=== PATIENT | female | born 1940 | race Asian ===

== ENCOUNTER 2017-07-19 12:32 | Emergency (ER) | payer MEDICARE, OTHER ==
[~2017-07-19] VITALS: Ht 154.9 cm; Wt 58.5 kg
[~2017-07-19 12:32] MED LIST: ALEN70TA30 PO; AMLO2.5T78 PO; ASPI-799 PO; ASPI81TA3 PO; ATOR20TA38 PO; CALC600T5 PO; CLON-379 PO; GABA300C16 PO; LISI-313 PO; METF500T4 PO; MULT-860 PO; OMEG-135 PO; PANT40TA4 PO
[2017-07-19 12:36] VITALS: Ht 154.9 cm; Wt 58.5 kg
--- NOTE | 2017-07-19 13:40 | ERD ---
ER Documentation Chief Complaint Chief Complaint left shoulder/upper back pain x 1 wks. denies cp/sob/cough HPI The patient is a 77-year-old female, presenting to the ER because of left shoulder pain for 1 week, denies neck pain, chest pain, shortness of breath, trauma, abdominal pain, vomiting, dysuria, diarrhea. She does not smoke nor drink Past medical history: Hypertension, diabetes mellitus, osteoporosis, dyslipidemia next Past medical history: eye ROS All systems reviewed and are negative except as per history of present illness. Medications Home Meds Active Scripts Tramadol Hcl* (Ultram*) 50 Mg Tablet, 50 MG PO Q6H Y for PAIN, #14 TAB Prov:MARCELLO ACOSTA MD 07/19/17 Amlodipine Besylate* (Amlodipine Besylate*) 2.5 Mg Tablet, 2.5 MG PO BID for 30 Days, TAB Prov:RONI GARCÍA 08/24/15 Pantoprazole* (Pantoprazole*) 40 Mg Tabec, 40 MG PO DAILY@06, #30 Prov:RONI GARCÍA 08/24/15 Aspirin (Aspirin) 81 Mg Chew, 81 MG PO DAILY for 30 Days Prov:RONI GARCÍA 08/24/15 Clonidine Hcl* (Clonidine Hcl*) 0.1 Mg Tab, 0.1 MG PO Q4H Y for sbp>160, #30 TAB Prov:RONI GARCÍA 08/24/15 Reported Medications Fish Oil* (Fish Oil*) 1,000 Mg Cap, 1000 MG PO BID, CAP 08/23/15 Lisinopril* (Lisinopril*) 5 Mg Tablet, 5 MG PO DAILY, TAB 08/23/15 Mu-Vits-Min Th/Lycopene/Lutein (CENTRUM SILVER TABLET) 1 Each Tablet, 1 EACH PO DAILY 08/23/15 Metformin Hcl* (Metformin Hcl*) 500 Mg Tablet, 500 MG PO BID WITH MEALS, TAB 08/23/15 Gabapentin* (Gabapentin*) 300 Mg Capsule, 300 MG PO TID, CAP 08/23/15 Atorvastatin Calcium* (Atorvastatin Calcium*) 20 Mg Tablet, 20 MG PO HS, TAB 08/23/15 Alendronate Sodium* (Fosamax*) 70 Mg Tablet, 70 MG PO Q7D, TAB 08/23/15 Aspirin/Calcium Carbonate/Mag (Aspirin Tri-Buffered) 325 Mg Tablet, 81 MG PO, TAB 11/26/14 Calcium Carbonate (CALCIUM) 600 Mg Tablet, 600 MG PO 11/26/14 Allergies Allergies: Coded Allergies: No Known Drug Allergy (Verified Allergy, Unknown, 07/19/17) PMhx/Soc Medical and Surgical Hx: pt denies Surgical Hx History of Surgery: No Anesthesia Reaction: No Hx Neurological Disorder: No Hx Respiratory Disorders: No Hx Cardiac Disorders: Yes (HTN) Hx Psychiatric Problems: No Hx Miscellaneous Medical Probl: Yes (DIABETES, TIA x2 ) Hx Alcohol Use: No Hx Substance Use: No Hx Tobacco Use: No Smoking Status: Never smoker Physical Exam Vitals Vital Signs Date Time Temp Pulse Resp B/P Pulse Ox O2 Delivery O2 Flow Rate FiO2 07/19/17 14:46 98.6 72 19 136/75 100 Room Air 07/19/17 12:36 97.7 79 18 157/82 98 Physical Exam Const: No acute distress. Head: Atraumatic. Eyes: Normal Conjunctiva. ENT: Normal External Ears, Nose and Mouth. Neck: Full range of motion. No meningismus. Resp: Clear to auscultation bilaterally. Cardio: Regular rate and rhythm. Abd: Soft, non distended, normal bowel sounds, non tender. Skin: No petechiae or rashes. Back: No midline or flank tenderness. Ext: Left shoulder is without any crepitus, erythema, has full range of motion Neur: Awake and alert. No focal deficit Psych: Normal Mood and Affect. Procedures/MDM MEDICAL MAKING DECISION: The patient is a 77-year-old female, presenting with acute left shoulder pain of unclear etiology. She is stable for outpatient follow-up The differential diagnoses considered include but are not limited to osteoarthritis, osteoporosis, internal derangement, fracture, contusion, sprain Departure Diagnosis: Primary Impression: Left shoulder pain Condition: Good Comments She was discharged with Ultram and advised that she may need MRI if the pain is persistent I discussed the findings with the patient. I advised the patient to follow-up with the primary physician in about 1-2 days, sooner if needed and return if any concern. Disclaimer: Inadvertent spelling and grammatical errors are likely due to EHR/ dictation software use and do not reflect on the overall quality of patient care. Also, please note that the electronic time recorded on this note does not necessarily reflect the actual time of the patient encounter. MARCELLO ACOSTA MD Jul 19, 2017 13:40
[2017-07-19] MEDS ORDERED: TRAM-40 PO (14:16)
[2017-07-19 14:46] VITALS: BP 136/75; PULSE 72; RESP 19; TEMP 98.6
== END 2017-07-19 14:47 | disposition home or self-care (01) ==
LOC: FTE 12:32
DX: M25.512 Pain in left shoulder (principal); I10 Essential (primary) hypertension; E11.9 Type 2 diabetes mellitus without complications; Z79.82 Long term (current) use of aspirin; Z79.84 Long term (current) use of oral hypoglycemic drugs
CPT/HCPCS: 99283

== ENCOUNTER 2018-12-03 15:00 | Emergency (ER) | payer MEDICARE, OTHER ==
[~2018-12-03] VITALS: Wt 55.9 kg
[~2018-12-03 15:00] MED LIST changes: -ALEN70TA30 PO; +ALEN70TA5 PO; +ASPI-831 PO; -ASPI81TA3 PO; +METF500T24 PO; -METF500T4 PO; +TRAM50TA PO
[2018-12-03] MEDS ORDERED: ACET500C5 PO (18:31)
--- NOTE | 2018-12-03 18:35 | ERD ---
ER Documentation Chief Complaint Chief Complaint RIGHT FOOT INJURY S/P GLF YESTERDAY, NO KO HPI 78-year-old female tripped and sustained an injury to her right foot yesterday. She has pain primarily in the first MTP area. She denies restricted range of motion weakness or bleeding or lacerations. Denies ankle or knee pain. She denies any head injury, neck pain, additional symptoms. ROS All systems reviewed and are negative except as per history of present illness. Medications Home Meds Active Scripts Acetaminophen* (Tylophen*) 500 Mg Capsule, 1 CAP PO Q6H PRN for PAIN AND OR ELEVATED TEMP, #20 CAP Prov:JESSE CAIN MD 12/03/18 Tramadol Hcl* (Ultram*) 50 Mg Tablet, 50 MG PO Q6H PRN for PAIN, #14 TAB Prov:MARCELLO ACOSTA MD 07/19/17 Amlodipine Besylate* (Amlodipine Besylate*) 2.5 Mg Tablet, 2.5 MG PO BID for 30 Days, TAB Prov:RONI GARCÍA 08/24/15 Pantoprazole* (Pantoprazole*) 40 Mg Tabec, 40 MG PO DAILY@06, #30 Prov:RONI GARCÍA 08/24/15 Aspirin (Aspirin) 81 Mg Chew, 81 MG PO DAILY for 30 Days Prov:RONI GARCÍA 08/24/15 Clonidine Hcl* (Clonidine Hcl*) 0.1 Mg Tab, 0.1 MG PO Q4H PRN for sbp>160, #30 TAB Prov:RONI GARCÍA 08/24/15 Reported Medications Fish Oil* (Fish Oil*) 1,000 Mg Cap, 1000 MG PO BID, CAP 08/23/15 Lisinopril* (Lisinopril*) 5 Mg Tablet, 5 MG PO DAILY, TAB 08/23/15 Mu-Vits-Min Th/Lycopene/Lutein (CENTRUM SILVER TABLET) 1 Each Tablet, 1 EACH PO DAILY 08/23/15 Metformin Hcl* (Metformin Hcl*) 500 Mg Tablet, 500 MG PO BID WITH MEALS, TAB 08/23/15 Gabapentin* (Gabapentin*) 300 Mg Capsule, 300 MG PO TID, CAP 08/23/15 Atorvastatin Calcium* (Atorvastatin Calcium*) 20 Mg Tablet, 20 MG PO HS, TAB 08/23/15 Alendronate Sodium* (Fosamax*) 70 Mg Tablet, 70 MG PO Q7D, TAB 08/23/15 Aspirin/Calcium Carbonate/Mag (Aspirin Tri-Buffered) 325 Mg Tablet, 81 MG PO, TAB 11/26/14 Calcium Carbonate (CALCIUM) 600 Mg Tablet, 600 MG PO 11/26/14 Allergies Allergies: Coded Allergies: No Known Drug Allergy (Verified Allergy, Unknown, 07/19/17) PMhx/Soc History of Surgery: No Anesthesia Reaction: No Hx Neurological Disorder: No Hx Respiratory Disorders: No Hx Cardiac Disorders: Yes (HTN) Hx Psychiatric Problems: No Hx Miscellaneous Medical Probl: Yes (DIABETES, TIA x2 ) Hx Alcohol Use: No Hx Substance Use: No Hx Tobacco Use: No FmHx Family History: No diabetes, No coronary disease, No other Physical Exam Vitals Vital Signs Date Temp Pulse Resp B/P (MAP) Pulse Ox O2 O2 Flow FiO2 Time Delivery Rate 12/03/18 97.1 67 17 175/89 100 15:08 (117) Physical Exam Const: No acute distress Head: Atraumatic Eyes: Normal Conjunctiva ENT: Normal External Ears, Nose and Mouth. Neck: Full range of motion. No meningismus. Resp: Clear to auscultation bilaterally Cardio: Regular rate and rhythm, no murmurs Abd: Soft, non tender, non distended. Normal bowel sounds Skin: No petechiae or rashes Back: No midline or flank tenderness Ext: No cyanosis, or edema or tenderness primarily over the right first metatarsal phalangeal joint area with mild swelling. No restricted range of motion, weakness, erythema, bleeding or lacerations. Neur: Awake and alert Psych: Normal Mood and Affect Procedures/MDM X-ray Foot 3V Interpreted by me: Bones: No fracture Joints: No dislocation Foreign body: None. Impression- advanced degenerative changes of the first metatarsal phalangeal joint area. Patient was placed in a right postop shoe. Patient is neurovascular intact after shoe. Patient presents with signs and symptoms of a sprain of the right first metatarsal phalangeal joint without evidence of fracture, dislocation, signs of ischemia, deficits or infection. She will be discharged home with r ecommended for Tylenol, primary care and orthopedic follow-up. The patient was stable with no new complaints during the ER course. Clinically, there is no current evidence to suggest meningitis, sepsis, acute abdomen, pneumonia, stroke, acute coronary syndrome, pulmonary embolism, aortic dissection or any other emergent condition appearing to require further evaluation or hospita lization. Patient counseled regarding my diagnostic impression and care plan. Prior to discharge all questions answered. Pt agrees with treatment plan and understands strict return precautions. Pt is instructed to follow up with primary care provider within 24-48 hours. Precautionary instructions provided including instructions to return to the ER if not improving or for any worsening or changing symptoms or concerns. Departure Diagnosis: Primary Impression: Injury of foot Encounter type: initial encounter Laterality: right Qualified Codes: S99.921A - Unspecified injury of right foot, initial encounter Condition: Stable Patient Instructions: Sprain Foot Referrals: DOCTOR,NOT ON STAFF (PCP) EWA JIANG MD Additional Instructions: There is arthritis of the area of pain but no fracture or dislocation. See primary doctor and orthopedist for further evaluation. Check for redness, fevers, new worsening symptoms. JESSE CAIN MD Dec 03, 2018 18:35
[2018-12-03 19:15] VITALS: BP 139/79; PULSE 69; RESP 18
== END 2018-12-03 19:20 | disposition home or self-care (01) ==
LOC: FTE 15:00
DX: S99.921A Unspecified injury of right foot, initial encounter (principal); E11.9 Type 2 diabetes mellitus without complications; I10 Essential (primary) hypertension; W01.0XXA Fall on same level from slipping, tripping and stumbling without subsequent striking against object, initial encounter; Y92.9 Unspecified place or not applicable; Z79.82 Long term (current) use of aspirin; Z79.84 Long term (current) use of oral hypoglycemic drugs; Z86.73 Personal history of transient ischemic attack (TIA), and cerebral infarction without residual deficits
CPT/HCPCS: 73630

== ENCOUNTER 2019-01-24 14:35 | Inpatient (IN) | payer MEDICARE, OTHER ==
[~2019-01-24] VITALS: Ht 154.9 cm; Wt 54.5 kg
[~2019-01-24 14:35] MED LIST changes: +ACET500C5 PO
[2019-01-24] MEDS ORDERED: ASPIRIN 325 MG TAB PO STA (15:44)
[2019-01-24] MEDS ORDERED: SOD CHLORIDE 0.9% 1,000 ML IV STA (15:44)
--- NOTE | 2019-01-24 15:49 | ERD ---
ER Documentation Chief Complaint Chief Complaint L arm numbness x 2 days; Hx of "mini stroke" 2 years ago. neuro WNL HPI This is a 78-year-old female who said at midnight last night to the onset of left upper extremity tingling, then she woke up at 2 AM to tie her hands and she noticed that the left arm was more tingling and and seemed a bit heavy. She went to bed and woke this morning with the same symptoms but she says they are less severe than they were at 2 AM. No symptoms in her left leg or left face no speech visual or swallowing changes. She has a history of TIA in the past ROS All systems reviewed and are negative except as per history of present illness. Medications Home Meds Reported Medications Ondansetron Hcl* (Zofran*) 4 Mg Tab, 4 MG PO Q8H PRN for NAUSEA AND OR VOMITING, TAB 01/24/19 [place]-3 Fatty Acids/Fish Oil ([place] 3 1,000 mg Softgel) 1 Each Capsule, 1 EACH PO DAILY, CAP 01/24/19 Metformin Hcl* (Metformin Hcl*) 1,000 Mg Tablet, 1000 MG PO WITH BREAKFAST DINNE, #60 TAB 01/24/19 Lisinopril* (Lisinopril*) 40 Mg Tablet, 40 MG PO DAILY, #30 TAB 01/24/19 Gabapentin* (Gabapentin*) 300 Mg Capsule, 300 MG PO BID, #60 CAP TAKE 600-QAM AND 900-QPM 01/24/19 Fluticasone Propionate* (Fluticasone Propionate* Nasal) 50 Mcg/[place] - 16 Gm [place].susp, 1 SPRAY NASAL DAILY, #1 BOTTLE TO EACH NOSTRIL 01/24/19 Diclofenac Sodium* (Voltaren* Gel) 1% -100 Gm Gel, 2 GM TOP TID, #1 TUB 01/24/19 Cyanocobalamin* (Vitamin B-12*) 1,000 Mcg Tablet.sa, 1000 MCG PO DAILY, TAB 01/24/19 Cholecalciferol* (Vitamin D3*) 1,000 Unit Tablet, 1000 UNIT PO DAILY, TAB 01/24/19 Atorvastatin Calcium* (Atorvastatin Calcium*) 20 Mg Tablet, 20 MG PO QHS, #30 TAB 01/24/19 Amlodipine Besylate* (Amlodipine Besylate*) 2.5 Mg Tablet, 2.5 MG PO DAILY, #30 TAB 01/24/19 Acetaminophen* (Acetaminophen*) 500 MG Extra Strength Tablet, 1000 MG PO BID PRN for PAIN AND OR ELEVATED TEMP, TAB 01/24/19 Polyethylene Glycol* (Miralax*) 17 Gm Powd.pack, 17 GM PO DAILY, #30 PACKET 01/24/19 Pantoprazole* (Pantoprazole*) 40 Mg Tablet.dr, 40 MG PO AC BREAKFAST, TAB 01/24/19 Discontinued Reported Medications Fish Oil* (Fish Oil*) 1,000 Mg Cap, 1000 MG PO BID, CAP 08/23/15 Lisinopril* (Lisinopril*) 5 Mg Tablet, 5 MG PO DAILY, TAB 08/23/15 Mu-Vits-Min Th/Lycopene/Lutein (CENTRUM SILVER TABLET) 1 Each Tablet, 1 EACH PO DAILY 08/23/15 Metformin Hcl* (Metformin Hcl*) 500 Mg Tablet, 500 MG PO BID WITH MEALS, TAB 08/23/15 Gabapentin* (Gabapentin*) 300 Mg Capsule, 300 MG PO TID, CAP 08/23/15 Atorvastatin Calcium* (Atorvastatin Calcium*) 20 Mg Tablet, 20 MG PO HS, TAB 08/23/15 Alendronate Sodium* (Fosamax*) 70 Mg Tablet, 70 MG PO Q7D, TAB 08/23/15 Aspirin/Calcium Carbonate/Mag (Aspirin Tri-Buffered) 325 Mg Tablet, 81 MG PO, TAB 11/26/14 Calcium Carbonate (CALCIUM) 600 Mg Tablet, 600 MG PO 11/26/14 Discontinued Scripts Acetaminophen* (Tylophen*) 500 Mg Capsule, 1 CAP PO Q6H PRN for PAIN AND OR ELEVATED TEMP, #20 CAP Prov:JESSE CAIN MD 12/03/18 Tramadol Hcl* (Ultram*) 50 Mg Tablet, 50 MG PO Q6H PRN for PAIN, #14 TAB Prov:MARCELLO ACOSTA MD 07/19/17 Amlodipine Besylate* (Amlodipine Besylate*) 2.5 Mg Tablet, 2.5 MG PO BID for 30 Days, TAB Prov:RONI GARCÍA 08/24/15 Pantoprazole* (Pantoprazole*) 40 Mg Tabec, 40 MG PO DAILY@06, #30 Prov:RONI GARCÍA 08/24/15 Aspirin (Aspirin) 81 Mg Chew, 81 MG PO DAILY for 30 Days Prov:RONI GARCÍA 08/24/15 Clonidine Hcl* (Clonidine Hcl*) 0.1 Mg Tab, 0.1 MG PO Q4H PRN for sbp>160, #30 TAB Prov:RONI GARCÍA 08/24/15 Allergies Allergies: Coded Allergies: No Known Drug Allergy (Verified Allergy, Unknown, 01/24/19) PMhx/Soc History of Surgery: Yes (IVANA CATARACTS) Anesthesia Reaction: No Hx Neurological Disorder: No Hx Respiratory Disorders: No Hx Cardiac Disorders: Yes (HTN; TIA'S X3) Hx Psychiatric Problems: No Hx Miscellaneous Medical Probl: Yes (DIABETIC ) Hx Alcohol Use: No Hx Substance Use: No Hx Tobacco Use: No Smoking Status: Never smoker FmHx Family History: No coronary disease Physical Exam Vitals Vital Signs Date Temp Pulse Resp B/P (MAP) Pulse Ox O2 O2 Flow FiO2 Time Delivery Rate 01/24/19 75 18 162/88 100 Room Air 17:05 (112) 01/24/19 74 16 139/92 99 Room Air 15:41 (108) 01/24/19 97.2 86 20 148/92 99 14:55 (110) Physical Exam Const: Well-developed, well-nourished Head: Atraumatic, normocephalic Eyes: Normal Conjunctiva, PERRLA, EOMI, normal sclera, no nystagmus ENT: Normal External Ears, Nose and Mouth, moist mucus membranes. Neck: Full range of motion. No meningismus, no lymphadenopathy. Resp: Clear to auscultation bilaterally, no wheezing, rhonchi, rales Cardio: Regular rate and rhythm, no murmurs, S1 S2 present Abd: Soft, non tender x 4, non distended. Normal bowel sounds, no guarding or rebound, no pulsitile abdominal masses or bruits Skin: No petechiae or rashes, no ecchymosis , no maculopapular rash Back: No midline or flank tenderness Ext: No cyanosis, or edema, FROM x 4, normal inspection, neurovascularly intact x 4 Neur: Awake and alert, STR 5/5 x 3, subjective decreased sensation in the left arm, there is a left pronator drift, cerebellum intact Psych: Normal Mood and Affect Result Diagram: 01/24/19 1552 01/24/19 1552 Results 24 hrs Laboratory Tests Test 01/24/19 15:52 White Blood Count 8.3 10^3/ul Red Blood Count 4.29 10^6/ul Hemoglobin 10.3 g/dl Hematocrit 33.6 % Mean Corpuscular Volume 78.3 fl Mean Corpuscular Hemoglobin 24.0 pg Mean Corpuscular Hemoglobin Concent 30.7 g/dl Red Cell Distribution Width 17.2 % Platelet Count 273 10^3/UL Mean Platelet Volume 11.1 fl Immature Granulocytes % 0.400 % Neutrophils % 71.5 % Lymphocytes % 20.6 % Monocytes % 6.4 % Eosinophils % 0.7 % Basophils % 0.4 % Nucleated Red Blood Cells % 0.0 /100WBC Immature Granulocytes # 0.030 10^3/ul Neutrophils # 5.9 10^3/ul Lymphocytes # 1.7 10^3/ul Monocytes # 0.5 10^3/ul Eosinophils # 0.1 10^3/ul Basophils # 0.0 10^3/ul Nucleated Red Blood Cells # 0.0 10^3/ul Prothrombin Time 13.4 Sec Prothrombin Time Ratio 1.0 INR International Normalized Ratio 1.01 Activated Partial Thromboplast Time 28.5 Sec Sodium Level 140 mmol/L Potassium Level 3.5 mmol/L Chloride Level 101 mmol/L Carbon Dioxide Level 29 mmol/L Anion Gap 10 Blood Urea Nitrogen 12 mg/dl Creatinine 0.80 mg/dl Est Glomerular Filtrat Rate mL/min mL/min Glucose Level 188 mg/dl Hemoglobin A1c 8.3 % Calcium Level 11.2 mg/dl Troponin I < 0.012 ng/ml Triglycerides Level 123 mg/dl Cholesterol Level 130 mg/dl LDL Cholesterol, Calculated 49 mg/dl HDL Cholesterol 56 mg/dl Cholesterol/HDL Ratio 2.3 RATIO Current Medications Medications Dose Sig/Perez Start Time Status Last (Trade) Ordered Route PRN Stop Time Admin Dose Reason Admin Sodium 1,000 ml @ Q1H STAT 01/24/19 DC 01/24/19 Chloride 1,000 mls/hr IV 15:44 01/24/19 16:09 16:43 Aspirin 325 mg ONCE STAT 01/24/19 DC 01/24/19 (Aspirin) PO 15:44 01/24/19 16:11 15:47 Procedures/MDM The patient is not a TPA candidate, she is nearly 16 hours out of onset, and her symptoms are very mild and are not going to affect her activities of daily living MR #: [id number] DOS: 01/24/19 1544 Ordering MD: CHEMA KAMARA DO Location: E/R Room/Bed: PROCEDURE: CT Brain without contrast. CLINICAL INDICATION: Left upper extremity weakness and numbness. TECHNIQUE: A CT of the brain without contrast was performed utilizing axial sections from the skull base through the vertex. The patient was scanned without intravenous contrast enhancement. Sagittal and coronal reformatted images were obtained using the data from the axial images. Total exam DLP is 634.23 mGy-cm. CTDIvol is 39.64 mGy. One or more of the following dose reduction techniques were used: Automated exposure control, adjustment of the mA and/or kV according to patient size, use of iterative reconstruction technique. DICOM images are available. COMPARISON: CT scan of the brain dated 09/26/2013. FINDINGS: There are is an old infarct with encephalomalacia involving the right basal ganglia and anterior limb of right internal capsule. The armstrong and white matter differentiation is otherwise normal. There is no evidence of acute infarct. There is enlargement of the ventricles and subarachnoid spaces consistent with atrophy. There is decreased attenuation of the periventricular white matter consistent with microangiopathic ischemic change. There is no intracranial hemorrhage or space-occupying lesion. There are vascular calcifications consistent with atherosclerosis. There is no skull fracture or lytic lesion. IMPRESSION: 1. Atrophy. 2. Microangiopathic ischemic change. 3. Atherosclerosis. 4. No intracranial hemorrhage. 5. 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 6. No acute infarct. 7. Otherwise unremarkable noncontrast CT scan of the brain. RPTAT: QQ .Jesse Marquez MD, MD Date Time Electronically viewed and signed by .Jesse Marquez MD, on 01/24/2019 16:48 .R/ CC: CHEMA KAMARA DO [id number] MR #: [id number] DOS: 01/24/19 1544 Ordering MD: CHEMA KAMARA DO Location: E/R Room/Bed: PROCEDURE: XR Chest 1 View. CLINICAL INDICATION: Shortness of breath. Stroke. TECHNIQUE: Single view of the chest was obtained. COMPARISON: CR CHEST 08/23/2015 FINDINGS: Support lines and tubes: None. Mediastinum: Within normal limits of size. Lungs: Scattered atelectasis in both lungs. No consolidations. No pneumothorax. Osseous structures: Intact. Osteopenia. Degenerative changes in the shoulders. Other: None. IMPRESSION: Scattered atelectasis in both lungs. RPTAT: AA .Donn Bach MD, Date Time Electronically viewed and signed by .Donn Bach MD, on 01/24/2019 16:22 .P/ CC: CHEMA KAMARA DO [id number] EKG: Rate/Rhythm: Normal sinus rhythm with nonspecific ST changes QRS, ST, QT: NORMAL NH, QRS, QT] Impression: NORMAL EKG We will admit the patient for MRI and further stroke work-up. Departure Diagnosis: Primary Impression: CVA (cerebral vascular accident) CVA mechanism: unspecified Qualified Codes: I63.9 - Cerebral infarction, unspecified Condition: Stable CHEMA KAMARA DO January 24, 2019 15:48
[2019-01-24] MEDS ORDERED: PANT40TA4 PO (16:00)
[2019-01-24] MEDS ORDERED: POLY17PO6 PO (16:00)
[2019-01-24] MEDS ORDERED: AMLO2.5T78 PO (16:01)
[2019-01-24] MEDS ORDERED: ACET-141 PO (16:01)
[2019-01-24] MEDS ORDERED: CYAN100080 PO (16:02)
[2019-01-24] MEDS ORDERED: CHOL100062 PO (16:02)
[2019-01-24] MEDS ORDERED: ATOR20TA38 PO (16:02)
[2019-01-24] MEDS ORDERED: FLUT16SP17 NASAL (16:03)
[2019-01-24] MEDS ORDERED: DICL100G37 TOP (16:03)
[2019-01-24] MEDS ORDERED: LISI40TA3 PO (16:05)
[2019-01-24] MEDS ORDERED: GABA300C16 PO (16:05)
[2019-01-24] MEDS ORDERED: METF100010 PO (16:05)
[2019-01-24] MEDS ORDERED: OMEG1CAP90 PO (16:06)
[2019-01-24] MEDS ORDERED: ONDA4TAB13 PO (16:07)
[2019-01-24] MEDS ORDERED: SOD CHLORIDE 0.9% 1,000 ML IV SCH (17:22)
[2019-01-24] MEDS ORDERED: ACETAMINOPHEN 325 MG TAB PO PRN ×2 (17:30→18:00)
[2019-01-24] MEDS ORDERED: ONDANSETRON 4 MG INJ IV PRN ×2 (17:30→18:00)
[2019-01-24] MEDS ORDERED: DOCUSATE SODIUM 100 MG CAP PO PRN (18:00)
[2019-01-24] MEDS: INSULIN ASPART [NOVOLOG] 3 ML PEN SC SCH ×2 (18:00→21:00)
[2019-01-24] MEDS ORDERED: MAGNESIUM HYDROXIDE 30ML CUP PO PRN (18:00)
[2019-01-24] MEDS ORDERED: NACL 0.9% 3 ML SYG IV SCH (18:00)
[2019-01-24] MEDS ORDERED: GLUCOSE GEL 15 GRAM TUBE BUCCAL PRN (18:00)
[2019-01-24] MEDS ORDERED: GLUCOSE GEL 15 GRAM TUBE PO PRN ×2 (18:00)
[2019-01-24] MEDS ORDERED: DEXTROSE 50% 50 ML SYRINGE IV PRN ×2 (18:00)
[2019-01-24] MEDS ORDERED: GLUCAGON 1 MG INJ IM PRN (18:00)
--- NOTE | 2019-01-24 18:45 | HP ---
Date/Time of Note Date/Time of Note DATE: 01/24/19 TIME: 18:32 Assessment/Plan VTE Prophylaxis SCD applied (from Nsg): Yes Pharmacological prophylaxis: NA/contraindicated Pharm contraindication: other Lines/Catheters IV Catheter Type (from Nrsg): Saline Lock Assessment/Plan Assessment/Plan 1. Acute TIA with LUE numbness- resolved - CT scan head negative for acute issues. Will order MRI head and MRI head and neck for further evaluation - ECHO ordered with bubble - Neurology consultation placed for further recommendations - PT/OT evaluation placed - Aspirin and statin on board - given patients history of TIAs in past, admission for further workup is warranted given risk factors of HTN and DM and past TIAs 2. Diabetes Mellitus - A1c noted - ISS and accuchecks - hold metformin 3. HTN - holding BP medications to allow for permissive HTN - will restart upon discharge 4. hypercalcemia - ?dehydration. given IVF bolus in ED. Will monitor and recommend workup if still elevated 5. Anemia - will check iron levels - no need for transfusion at this time 6. Diet - carb controlled 7. DVT ppx - SCD 8. GI ppx - PPI 9. Disposition - Admit to telemetry for workup of TIA symptoms given patients risk factors of DM, HTN and past TIAs. Neurology consultation placed. Discharge planning based on results and progression during hospitalization Result Diagram: 01/24/19 1552 01/24/19 1552 Results 24hrs Laboratory Tests Test 01/24/19 15:52 White Blood Count 8.3 Red Blood Count 4.29 Hemoglobin 10.3 L Hematocrit 33.6 L Mean Corpuscular Volume 78.3 L Mean Corpuscular Hemoglobin 24.0 L Mean Corpuscular Hemoglobin Concent 30.7 L Red Cell Distribution Width 17.2 H Platelet Count 273 Mean Platelet Volume 11.1 H Immature Granulocytes % 0.400 Neutrophils % 71.5 Lymphocytes % 20.6 Monocytes % 6.4 Eosinophils % 0.7 Basophils % 0.4 Nucleated Red Blood Cells % 0.0 Immature Granulocytes # 0.030 Neutrophils # 5.9 Lymphocytes # 1.7 Monocytes # 0.5 Eosinophils # 0.1 Basophils # 0.0 Nucleated Red Blood Cells # 0.0 Prothrombin Time 13.4 Prothrombin Time Ratio 1.0 INR International Normalized Ratio 1.01 Activated Partial Thromboplast Time 28.5 Sodium Level 140 Potassium Level 3.5 Chloride Level 101 Carbon Dioxide Level 29 Anion Gap 10 Blood Urea Nitrogen 12 Creatinine 0.80 Est Glomerular Filtrat Rate mL/min Glucose Level 188 Hemoglobin A1c 8.3 H Calcium Level 11.2 H Troponin I < 0.012 Triglycerides Level 123 Cholesterol Level 130 LDL Cholesterol, Calculated 49 HDL Cholesterol 56 Cholesterol/HDL Ratio 2.3 HPI/ROS Admit Date/Time Admit Date/Time 01/24/19 Hx of Present Illness 78 yo F with PMH HTN, diabetes and TIA in past presented to ED with acute onset of left upper extremity numbness that occurred at midnight last night. Patient described discomfort as tingling and heavy. The sensation persisted throughout the night and woke up with am with the same symptoms. She denies any facial n umbness, right sided defects, ambulatory disfunction, swallowing issues, or LOC. Patient has a history of TIAs in the past as well with no residual defects. Patient states her symptoms have since resolved and requesting to go home but discussed given her risk factors and history of TIAs, workup would be appropriate. Patient denies any chest pain, shortness of breath, nausea, vomiting, abdominal pain, or urinary issues. ROS All 12 systems reviewed and pertinent positives as per HPI. All others negative. Constitutional: No chills, No fatigue, No nausea Eyes: No discharge ENT: No congestion Respiratory: No cough, No shortness of breath, No sputum, No wheezing Cardiovascular: No chest pain, No lightheadedness, No palpitations Gastrointestinal: No pain, No constipation, No diarrhea, No nausea, No vomiting Genitourinary: No dysuria, No discharge Musculoskeletal: No back pain, No neck pain Skin: No bruising, No rash Neurologic: focal-weakness (resolved), other (left upper extremity tingling- resolved); No confusion, No dizziness Endocrine: no complaints Lymphatic: no complaints Psychological: nl mood/affect Immunologic: no complaints PMH/Family/Social Past Medical History Medical History: diabetes, high cholesterol, hypertension Medications Current Medications Sodium Chloride 1,000 ml @ 80 mls/hr [id number] IV ; Start 01/24/19 at 17:22; Stop 01/25/19 at 05:51 Atorvastatin Calcium (Lipitor) 20 mg QHS PO ; Start 01/24/19 at 21:00 Cholecalciferol (Vitamin D) 1,000 unit DAILY PO ; Start 01/25/19 at 09:00 Cyanocobalamin (Vitamin B12) 1,000 mcg DAILY PO ; Start 01/25/19 at 09:00 Diclofenac Sodium (Voltaren 1% Gel) 2 gm TID TP ; Start 01/24/19 at 21:00 Fluticasone Propionate (Flonase 0.05% Nasal) 1 spray DAILY NASAL ; Start 01/25/19 at 09:00 Gabapentin (Neurontin) 300 mg BID PO ; Start 01/24/19 at 21:00 Pantoprazole (Protonix Tab) 40 mg AC BREAKFAST PO ; Start 01/25/19 at 07:00 Polyethylene Glycol (Miralax) 17 gm DAILY PO ; Start 01/25/19 at 09:00 Fish Oil (Fish Oil) 1,000 mg DAILY PO ; Start 01/25/19 at 09:00 IV Flush (NS 3 ml) 3 ml PER PROTOCOL IV ; Start 01/24/19 at 18:00 Ondansetron HCl (Zofran Inj) 4 mg Q6H PRN IV NAUSEA/VOMITING; Start 01/24/19 at 18:00 Aspirin (Aspirin) 81 mg DAILY PO ; Start 01/25/19 at 09:00 Acetaminophen (Tylenol Tab) 650 mg Q6H PRN PO .PAIN 1-3 OR TEMP; Start 01/24/19 at 18:00 Docusate Sodium (Colace) 100 mg Q12H PRN PO .CONSTIPATION; Start 01/24/19 at 18:00 Magnesium Hydroxide (Milk Of Mag) 30 ml DAILY PRN PO .CONSTIPATION; Start 01/24/19 at 18:00 Insulin Aspart (Novolog Insulin Pen) NOVOLOG *MILD* ALGORITHM WITH MEALS BEDTIME SC ; Start 01/24/19 at 18:00 Miscellaneous Information 1 ea NOTE XX ; Start 01/24/19 at 18:00 Glucose (Glutose) 15 gm Q15M PRN PO DECREASED GLUCOSE; Start 01/24/19 at 18:00 Glucose (Glutose) 22.5 gm Q15M PRN PO DECREASED GLUCOSE; Start 01/24/19 at 18:00 Dextrose (D50w Syringe) 25 ml Q15M PRN IV DECREASED GLUCOSE; Start 01/24/19 at 18:00 Dextrose (D50w Syringe) 50 ml Q15M PRN IV DECREASED GLUCOSE; Start 01/24/19 at 18:00 Glucagon (Glucagen) 1 mg Q15M PRN IM DECREASED GLUCOSE; Start 01/24/19 at 18:00 Glucose (Glutose) 15 gm Q15M PRN BUCCAL DECREASED GLUCOSE; Start 01/24/19 at 18:00 Coded Allergies: No Known Drug Allergy (Verified Allergy, Unknown, 01/24/19) Past Surgical History Past Surgical Hx: other (cataract) Family History Significant Family History: other Social History Alcohol Use: none Smoking Status: Never smoker Drug Use: none Exam/Review of Systems Vital Signs Vitals Vital Signs Date Temp Pulse Resp B/P (MAP) Pulse Ox O2 O2 Flow FiO2 Time Delivery Rate 01/24/19 75 18 162/88 100 Room Air 17:05 (112) 01/24/19 97.2 14:55 Exam Exam General: Patient is in no acute distress. answering questions appropriately HEENT: Atraumatic, normocephalic. The pupils are equal, round and reactive. Extraocular motor are intact Neck: Supple with full range of motion. No rigidity or meningismus Chest: Nontender Lungs: Clear to auscultation bilaterally no crackles rales or wheezing Heart: Normal S1-S2, Regular rhythm and rate. No murmur, S3, or S4 Abdomen: Soft , nontender, nondistended , bowel sounds are present. No guarding no rebound tenderness , No masses or organomegaly. No costovertebral temporal angle mass Extremities: Normal to inspection, no edema no cyanosis Neurologic: CN 2-12 intact. no focal deficits appreciated. 4/5 strength UE and LE bilaterally. sensation intact Skin: no lesions or rashes Additional Comments Home medications reviewed PROCEDURE: CT Brain without contrast. CLINICAL INDICATION: Left upper extremity weakness and numbness. TECHNIQUE: A CT of the brain without contrast was performed utilizing axial sections from the skull base through the vertex. The patient was scanned without intravenous contrast enhancement. Sagittal and coronal reformatted images were obtained using the data from the axial images. Total exam DLP is 634.23 mGy-cm. CTDIvol is 39.64 mGy. One or more of the following dose reduction techniques were used: Automated exposure control, adjustment of the mA and/or kV according to patient size, use of iterative reconstruction technique. DICOM images are available. COMPARISON: CT scan of the brain dated 09/26/2013. FINDINGS: There are is an old infarct with encephalomalacia involving the right basal ganglia and anterior limb of right internal capsule. The armstrong and white matter differentiation is otherwise normal. There is no evidence of acute infarct. There is enlargement of the ventricles and subarachnoid spaces consistent with atrophy. There is decreased attenuation of the periventricular white matter consistent with microangiopathic ischemic change. There is no intracranial hemorrhage or space-occupying lesion. There are vascular calcifications consistent with atherosclerosis. There is no skull fracture or lytic lesion. IMPRESSION: 1. Atrophy. 2. Microangiopathic ischemic change. 3. Atherosclerosis. 4. No intracranial hemorrhage. 5. 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 6. No acute infarct. 7. Otherwise unremarkable noncontrast CT scan of the brain. RPTAT: QQ .Juan Marquez MD, MD Date Time Electronically viewed and signed by .Juan Marquez MD, MD on 01/24/2019 16:48 MARIA VICTORIA ECHAVARRIA MD January 24, 2019 18:45
[2019-01-24] MEDS ORDERED: ATORVASTATIN 20 MG TAB PO SCH (21:00)
[2019-01-24 21:15] VITALS: BP 178/81; PULSE 82; RESP 20; Ht 154.9 cm; Wt 54.5 kg
[2019-01-24 21:21] VITALS: PULSE 73
[2019-01-24] MEDS: GABAPENTIN 300 MG CAP PO SCH (22:16)
[2019-01-24] MEDS: DICLOFENAC SODIUM 1% GEL 100 GM TUBE TP SCH (22:17)
[2019-01-25] VITALS (10 sets, daily range): BP systolic 113–185; BP diastolic 55–81; PULSE 64–88; RESP 18
[2019-01-25] MEDS ORDERED: hydrALAzine 20 MG INJ IV PRN (01:00)
[2019-01-25] MEDS ORDERED: PANTOPRAZOLE (EC) 40 MG TAB PO SCH (07:00)
[2019-01-25] MEDS: INSULIN ASPART [NOVOLOG] 3 ML PEN SC SCH ×3 (07:48→17:20)
[2019-01-25] MEDS: GABAPENTIN 300 MG CAP PO SCH (08:27)
[2019-01-25] MEDS: DICLOFENAC SODIUM 1% GEL 100 GM TUBE TP SCH ×2 (08:28→12:13)
[2019-01-25] MEDS ORDERED: POTASSIUM CHLORIDE (SR) 20 MEQ TAB PO STA (08:42)
[2019-01-25] MEDS ORDERED: ASPIRIN 81 MG TAB PO SCH (09:00)
[2019-01-25] MEDS ORDERED: CHOLECALCIFEROL 1,000 UNIT TAB PO SCH (09:00)
[2019-01-25] MEDS ORDERED: FLUTICASONE 0.05% 16 GM NAS SPRAY NASAL SCH (09:00)
[2019-01-25] MEDS ORDERED: FISH OIL 1,000 MG CAP PO SCH (09:00)
[2019-01-25] MEDS ORDERED: POLYETHYLENE GLYCOL 17 GM PACKET PO SCH (09:00)
[2019-01-25] MEDS ORDERED: CYANOCOBALAMIN 500 MCG TAB PO SCH (09:00)
--- NOTE | 2019-01-25 10:14 | PN ---
Date/Time of Note Date/Time of Note DATE: 01/25/19 TIME: 10:14 Assessment/Plan VTE Prophylaxis SCD applied (from Nsg): Yes Pharmacological prophylaxis: other Lines/Catheters IV Catheter Type (from Nrsg): Saline Lock Urinary Cath still in place: No Assessment/Plan Assessment/Plan 1. Acute right precentral gyrus cortical infarcts - no residual defects appreciated - seen on MRI - ECHO pending - Neurology consultation placed for further recommendations - PT/OT evaluation appreciated and recommending outpatient PT - Aspirin and statin on board 2. Diabetes Mellitus - A1c noted - ISS and accuchecks - hold metformin 3. HTN - restart BP upon discharge 4. hypercalcemia - improving 5. Anemia, iron deficiency - iron levels noted - no need for transfusions 6. Narrowing of the distal petrous segment of the right ICA - discussed with Neurosurgery who recommends outpatient follow up with neurology or endovascular neurosurgery 7. Disposition - Medically stable for discharge home Result Diagram: 01/25/19 0426 01/25/19 0426 Results 24hrs Laboratory Tests Test 01/24/19 15:51 01/24/19 15:52 01/24/19 18:32 01/24/19 22:14 Iron Level 30 L Total Iron Binding 405 Capacity Percent Iron Saturation 7 L White Blood Count 8.3 Red Blood Count 4.29 Hemoglobin 10.3 L Hematocrit 33.6 L Mean Corpuscular Volume 78.3 L Mean Corpuscular 24.0 L Hemoglobin Mean Corpuscular 30.7 L Hemoglobin Concent Red Cell Distribution 17.2 H Width Platelet Count 273 Mean Platelet Volume 11.1 H Immature Granulocytes % 0.400 Neutrophils % 71.5 Lymphocytes % 20.6 Monocytes % 6.4 Eosinophils % 0.7 Basophils % 0.4 Nucleated Red Blood 0.0 Cells % Immature Granulocytes # 0.030 Neutrophils # 5.9 Lymphocytes # 1.7 Monocytes # 0.5 Eosinophils # 0.1 Basophils # 0.0 Nucleated Red Blood 0.0 Cells # Prothrombin Time 13.4 Prothrombin Time Ratio 1.0 INR International 1.01 Normalized Ratio Activated 28.5 Partial Thromboplast Time Sodium Level 140 Potassium Level 3.5 Chloride Level 101 Carbon Dioxide Level 29 Anion Gap 10 Blood Urea Nitrogen 12 Creatinine 0.80 Est Glomerular Filtrat Rate mL/min Glucose Level 188 Hemoglobin A1c 8.3 H Calcium Level 11.2 H Troponin I < 0.012 Triglycerides Level 123 Cholesterol Level 130 LDL Cholesterol, 49 Calculated HDL Cholesterol 56 Cholesterol/HDL Ratio 2.3 Bedside Glucose 117 112 Test 01/25/19 04:26 01/25/19 07:43 White Blood Count 8.2 Red Blood Count 4.33 Hemoglobin 10.3 L Hematocrit 33.1 L Mean Corpuscular Volume 76.4 L Mean Corpuscular 23.8 L Hemoglobin Mean Corpuscular 31.1 L Hemoglobin Concent Red Cell Distribution 17.2 H Width Platelet Count 279 Mean Platelet Volume 12.2 H Immature Granulocytes % 0.200 Neutrophils % 61.4 Lymphocytes % 29.0 Monocytes % 8.0 Eosinophils % 1.0 Basophils % 0.4 Nucleated Red Blood 0.0 Cells % Immature Granulocytes # 0.020 Neutrophils # 5.0 Lymphocytes # 2.4 Monocytes # 0.7 Eosinophils # 0.1 Basophils # 0.0 Nucleated Red Blood 0.0 Cells # Sodium Level 144 Potassium Level 3.2 L Chloride Level 105 Carbon Dioxide Level 26 Anion Gap 13 Blood Urea Nitrogen 10 Creatinine 0.67 Est Glomerular Filtrat Rate mL/min Glucose Level 194 Calcium Level 10.6 H Magnesium Level 1.1 L Total Bilirubin 0.7 Direct Bilirubin 0.00 Indirect Bilirubin 0.7 Aspartate Amino 15 Transf (AST/SGOT) Alanine 14 Aminotransferase (ALT/SG PT) Alkaline Phosphatase 71 Total Protein 7.4 Albumin 4.0 Globulin 3.40 H Albumin/Globulin Ratio 1.17 Thyroid Stimulating 3.010 Hormone (TSH) Bedside Glucose 162 Subjective 24 Hr Interval Summary Free Text/Dictation Patient states shes feeling better and requesting to go home. Discussed with family at bedside preventative measures and need to follow up with PCP. Exam/Review of Systems Exam Vitals Vital Signs Date Temp Pulse Resp B/P (MAP) Pulse Ox O2 O2 Flow FiO2 Time Delivery Rate 01/25/19 71 08:13 01/25/19 98.2 18 134/69 97 Room Air 07:21 (90) Intake and Output 01/24/19 01/24/19 01/25/19 1515:00 23:00 07:00 IntakeIntake Total 300 ml BalanceBalance 300 ml Exam General: Patient is in no acute distress. answering questions appropriately Chest: Nontender Lungs: Clear to auscultation bilaterally no crackles rales or wheezing Heart: Normal S1-S2, Regular rhythm and rate. No murmur, S3, or S4 Abdomen: Soft , nontender, nondistended , bowel sounds are present. No guarding no rebound tenderness Extremities: Normal to inspection, no edema no cyanosis Neurologic: CN 2-12 intact. no focal deficits appreciated. 4/5 strength UE and LE bilaterally. sensation intact Skin: no lesions or rashes Results Results 24hrs Laboratory Tests Test 01/24/19 15:51 01/24/19 15:52 01/24/19 18:32 01/24/19 22:14 Iron Level 30 L Total Iron Binding 405 Capacity Percent Iron Saturation 7 L White Blood Count 8.3 Red Blood Count 4.29 Hemoglobin 10.3 L Hematocrit 33.6 L Mean Corpuscular Volume 78.3 L Mean Corpuscular 24.0 L Hemoglobin Mean Corpuscular 30.7 L Hemoglobin Concent Red Cell Distribution 17.2 H Width Platelet Count 273 Mean Platelet Volume 11.1 H Immature Granulocytes % 0.400 Neutrophils % 71.5 Lymphocytes % 20.6 Monocytes % 6.4 Eosinophils % 0.7 Basophils % 0.4 Nucleated Red Blood 0.0 Cells % Immature Granulocytes # 0.030 Neutrophils # 5.9 Lymphocytes # 1.7 Monocytes # 0.5 Eosinophils # 0.1 Basophils # 0.0 Nucleated Red Blood 0.0 Cells # Prothrombin Time 13.4 Prothrombin Time Ratio 1.0 INR International 1.01 Normalized Ratio Activated 28.5 Partial Thromboplast Time Sodium Level 140 Potassium Level 3.5 Chloride Level 101 Carbon Dioxide Level 29 Anion Gap 10 Blood Urea Nitrogen 12 Creatinine 0.80 Est Glomerular Filtrat Rate mL/min Glucose Level 188 Hemoglobin A1c 8.3 H Calcium Level 11.2 H Troponin I < 0.012 Triglycerides Level 123 Cholesterol Level 130 LDL Cholesterol, 49 Calculated HDL Cholesterol 56 Cholesterol/HDL Ratio 2.3 Bedside Glucose 117 112 Test 01/25/19 04:26 01/25/19 07:43 White Blood Count 8.2 Red Blood Count 4.33 Hemoglobin 10.3 L Hematocrit 33.1 L Mean Corpuscular Volume 76.4 L Mean Corpuscular 23.8 L Hemoglobin Mean Corpuscular 31.1 L Hemoglobin Concent Red Cell Distribution 17.2 H Width Platelet Count 279 Mean Platelet Volume 12.2 H Immature Granulocytes % 0.200 Neutrophils % 61.4 Lymphocytes % 29.0 Monocytes % 8.0 Eosinophils % 1.0 Basophils % 0.4 Nucleated Red Blood 0.0 Cells % Immature Granulocytes # 0.020 Neutrophils # 5.0 Lymphocytes # 2.4 Monocytes # 0.7 Eosinophils # 0.1 Basophils # 0.0 Nucleated Red Blood 0.0 Cells # Sodium Level 144 Potassium Level 3.2 L Chloride Level 105 Carbon Dioxide Level 26 Anion Gap 13 Blood Urea Nitrogen 10 Creatinine 0.67 Est Glomerular Filtrat Rate mL/min Glucose Level 194 Calcium Level 10.6 H Magnesium Level 1.1 L Total Bilirubin 0.7 Direct Bilirubin 0.00 Indirect Bilirubin 0.7 Aspartate Amino 15 Transf (AST/SGOT) Alanine 14 Aminotransferase (ALT/SG PT) Alkaline Phosphatase 71 Total Protein 7.4 Albumin 4.0 Globulin 3.40 H Albumin/Globulin Ratio 1.17 Thyroid Stimulating 3.010 Hormone (TSH) Bedside Glucose 162 Medications Medication Current Medications Atorvastatin Calcium (Lipitor) 20 mg QHS PO Last administered on 01/24/19 22:16; Admin Dose 20 MG; Start 01/24/19 at 21:00 Cholecalciferol (Vitamin D) 1,000 unit DAILY PO Last administered on 01/25/19 08:27; Admin Dose 1,000 UNIT; Start 01/25/19 at 09:00 Cyanocobalamin (Vitamin B12) 1,000 mcg DAILY PO Last administered on 01/25/19 08:27; Admin Dose 1,000 MCG; Start 01/25/19 at 09:00 Diclofenac Sodium (Voltaren 1% Gel) 2 gm TID TP Last administered on 01/25/19 08:28; Admin Dose 2 GM; Start 01/24/19 at 21:00 Fluticasone Propionate (Flonase 0.05% Nasal) 1 spray DAILY NASAL Last administered on 01/25/19 08:27; Admin Dose 1 SPRAY; Start 01/25/19 at 09:00 Gabapentin (Neurontin) 300 mg BID PO Last administered on 01/25/19 08:27; Admin Dose 300 MG; Start 01/24/19 at 21:00 Pantoprazole (Protonix Tab) 40 mg AC BREAKFAST PO Last administered on 01/25/19 06:38; Admin Dose 40 MG; Start 01/25/19 at 07:00 Polyethylene Glycol (Miralax) 17 gm DAILY PO Last administered on 01/25/19 08:26; Admin Dose 17 GM; Start 01/25/19 at 09:00 Fish Oil (Fish Oil) 1,000 mg DAILY PO Last administered on 01/25/19at 08:27; Admin Dose 1,000 MG; Start 01/25/19 at 09:00 IV Flush (NS 3 ml) 3 ml PER PROTOCOL IV ; Start 01/24/19 at 18:00 Ondansetron HCl (Zofran Inj) 4 mg Q6H PRN IV NAUSEA/VOMITING; Start 01/24/19 at 18:00 Aspirin (Aspirin) 81 mg DAILY PO Last administered on 01/25/19at 08:27; Admin Dose 81 MG; Start 01/25/19 at 09:00 Acetaminophen (Tylenol Tab) 650 mg Q6H PRN PO .PAIN 1-3 OR TEMP; Start 01/24/19 at 18:00 Docusate Sodium (Colace) 100 mg Q12H PRN PO .CONSTIPATION; Start 01/24/19 at 18:00 Magnesium Hydroxide (Milk Of Mag) 30 ml DAILY PRN PO .CONSTIPATION; Start 01/24/19 at 18:00 Insulin Aspart (Novolog Insulin Pen) NOVOLOG *MILD* ALGORITHM WITH MEALS BEDTIME SC Last administered on 01/25/19at 07:48; Admin Dose 1 UNIT; Start 01/24/19 at 18:00 Miscellaneous Information 1 ea NOTE XX ; Start 01/24/19 at 18:00 Glucose (Glutose) 15 gm Q15M PRN PO DECREASED GLUCOSE; Start 01/24/19 at 18:00 Glucose (Glutose) 22.5 gm Q15M PRN PO DECREASED GLUCOSE; Start 01/24/19 at 18:00 Dextrose (D50w Syringe) 25 ml Q15M PRN IV DECREASED GLUCOSE; Start 01/24/19 at 18:00 Dextrose (D50w Syringe) 50 ml Q15M PRN IV DECREASED GLUCOSE; Start 01/24/19 at 18:00 Glucagon (Glucagen) 1 mg Q15M PRN IM DECREASED GLUCOSE; Start 01/24/19 at 18:00 Glucose (Glutose) 15 gm Q15M PRN BUCCAL DECREASED GLUCOSE; Start 01/24/19 at 18:00 Hydralazine HCl (Apresoline) 10 mg Q4H PRN IV SBP >200 Last administered on 01/25/19at 01:37; Admin Dose 10 MG; Start 01/25/19 at 01:00 Magnesium Sulfate 3 gm/Dextrose 106 ml @ 35.333 mls/ hr ONCE ONCE IVPB ; Start 01/25/19 at 10:30; Stop 01/25/19 at 13:29 MARIA VICTORIA ECHAVARRIA MD January 25, 2019 10:14
[2019-01-25] MEDS ORDERED: MAGNESIUM SULFATE 3 GM in DEXTROSE 5% 100 ML IVPB ONE (10:30)
--- NOTE | 2019-01-25 14:45 | CONS ---
Assessment/Plan Assessment/Plan Hospital Course 78 yo F with multiple cerebrovascular risk factors who presents for evaluation of L arm numbness. MRI confirmed an acute R frontal infarct... for which neurology is consulted. MRA H/N is notable for R ICA stenosis, but is without multifocal stenoses. P: Await echo ASA/Lipitor for now Add UDS, ESR, RPR Permissive HTN up to 220/110 through today Cont other medical management per primary PT/OT/ST as necessary Will follow clinically, to recommend neurologic studies, as necessary Consultation Date/Type/Reason Admit Date/Time 01/24/19 Type of Consult Neurology Reason for Consultation stroke Requesting Provider: MARIA VICTORIA ECHAVARRIA MD Date/Time of Note DATE: 01/25/19 TIME: 14:45 Hx of Present Illness 78 yo F with hx of CVA, HTN, DM and other comorbidities who presented to the ED for evaluation of LUE numbness. History was obtained from pt, family, and chart review. The pt states that her sx have now completely resolved. Denies any focal neurologic deficit at this time. It is additionally elsewhere noted: Hx of Present Illness 78 yo F with PMH HTN, diabetes and TIA in past presented to ED with acute onset of left upper extremity numbness that occurred at midnight last night. Patient described discomfort as tingling and heavy. The sensation persisted throughout the night and woke up with am with the same symptoms. She denies any facial numbness, right sided defects, ambulatory disfunction, swallowing issues, or LOC. Patient has a history of TIAs in the past as well with no residual defects. Patient states her symptoms have since resolved and requesting to go home but discussed given her risk factors and history of TIAs, workup would be appropriate. Patient denies any chest pain, shortness of breath, nausea, vomiting, abdominal pain, or urinary issues. negative unless noted otherwise in HPI Exam/Review of Systems Exam Vitals Vital Signs Date Temp Pulse Resp B/P (MAP) Pulse Ox O2 O2 Flow FiO2 Time Delivery Rate 01/25/19 77 12:12 01/25/19 98.0 18 150/73 97 Room Air 11:25 (98) Intake and Output 01/24/19 01/24/19 01/25/19 1515:00 23:00 07:00 IntakeIntake Total 300 ml BalanceBalance 300 ml Exam PE: Gen Appearance: No Apparent Distress HEENT: Normocephalic Cardiovascular: Regular rate Lungs: Clear bilaterally Abdomen: Soft Extremities: Dry NE: The patient was alert and oriented.. Language was normal. Fund of knowledge was normal. Pupils were equal and reactive to light. There was no afferent pupillary defect. Visual licona were normal. Funduscopic examination was limited. Extra-ocular movements were full. Ptosis was absent. There was no nystagmus. Facial sensation was normal. Face was symmetric with normal strength. Hearing was intact. Palate movements were normal. Neck strength was normal. There was normal tongue bulk and speed of movement. Tone was normal. Muscle bulk was normal. I did not see fasciculations. Arms and legs were mildly weak, symmetrically. Vibration sensation was normal. Temperature and pinprick sensation was normal. Rapid alternating movements were normal. There was no dysmetria. There was no intention tremor. Gait was deferred due to bedrest. Arm and leg reflexes were 2+ and symmetric. Abebe's sign was absent. Plantar responses were flexor. Results Result Diagram: 01/25/19 0426 01/25/19 0426 Results 24hrs Laboratory Tests Test 01/24/19 15:51 01/24/19 15:52 01/24/19 18:32 01/24/19 22:14 Iron Level 30 L Total Iron Binding 405 Capacity Percent Iron Saturation 7 L White Blood Count 8.3 Red Blood Count 4.29 Hemoglobin 10.3 L Hematocrit 33.6 L Mean Corpuscular Volume 78.3 L Mean Corpuscular 24.0 L Hemoglobin Mean Corpuscular 30.7 L Hemoglobin Concent Red Cell Distribution 17.2 H Width Platelet Count 273 Mean Platelet Volume 11.1 H Immature Granulocytes % 0.400 Neutrophils % 71.5 Lymphocytes % 20.6 Monocytes % 6.4 Eosinophils % 0.7 Basophils % 0.4 Nucleated Red Blood 0.0 Cells % Immature Granulocytes # 0.030 Neutrophils # 5.9 Lymphocytes # 1.7 Monocytes # 0.5 Eosinophils # 0.1 Basophils # 0.0 Nucleated Red Blood 0.0 Cells # Prothrombin Time 13.4 Prothrombin Time Ratio 1.0 INR International 1.01 Normalized Ratio Activated 28.5 Partial Thromboplast Time Sodium Level 140 Potassium Level 3.5 Chloride Level 101 Carbon Dioxide Level 29 Anion Gap 10 Blood Urea Nitrogen 12 Creatinine 0.80 Est Glomerular Filtrat Rate mL/min Glucose Level 188 Hemoglobin A1c 8.3 H Calcium Level 11.2 H Troponin I < 0.012 Triglycerides Level 123 Cholesterol Level 130 LDL Cholesterol, 49 Calculated HDL Cholesterol 56 Cholesterol/HDL Ratio 2.3 Bedside Glucose 117 112 Test 01/25/19 04:26 01/25/19 07:43 01/25/19 12:09 White Blood Count 8.2 Red Blood Count 4.33 Hemoglobin 10.3 L Hematocrit 33.1 L Mean Corpuscular Volume 76.4 L Mean Corpuscular 23.8 L Hemoglobin Mean Corpuscular 31.1 L Hemoglobin Concent Red Cell Distribution 17.2 H Width Platelet Count 279 Mean Platelet Volume 12.2 H Immature Granulocytes % 0.200 Neutrophils % 61.4 Lymphocytes % 29.0 Monocytes % 8.0 Eosinophils % 1.0 Basophils % 0.4 Nucleated Red Blood 0.0 Cells % Immature Granulocytes # 0.020 Neutrophils # 5.0 Lymphocytes # 2.4 Monocytes # 0.7 Eosinophils # 0.1 Basophils # 0.0 Nucleated Red Blood 0.0 Cells # Sodium Level 144 Potassium Level 3.2 L Chloride Level 105 Carbon Dioxide Level 26 Anion Gap 13 Blood Urea Nitrogen 10 Creatinine 0.67 Est Glomerular Filtrat Rate mL/min Glucose Level 194 Calcium Level 10.6 H Magnesium Level 1.1 L Total Bilirubin 0.7 Direct Bilirubin 0.00 Indirect Bilirubin 0.7 Aspartate Amino 15 Transf (AST/SGOT) Alanine 14 Aminotransferase (ALT/SG PT) Alkaline Phosphatase 71 Total Protein 7.4 Albumin 4.0 Globulin 3.40 H Albumin/Globulin Ratio 1.17 Thyroid Stimulating 3.010 Hormone (TSH) Bedside Glucose 162 147 Medications Medication Current Medications Cholecalciferol (Vitamin D) 1,000 unit DAILY PO Last administered on 01/25/19at 08:27; Admin Dose 1,000 UNIT; Start 01/25/19 at 09:00 Cyanocobalamin (Vitamin B12) 1,000 mcg DAILY PO Last administered on 01/25/19at 08:27; Admin Dose 1,000 MCG; Start 01/25/19 at 09:00 Diclofenac Sodium (Voltaren 1% Gel) 2 gm TID TP Last administered on 01/25/19at 08:28; Admin Dose 2 GM; Start 01/24/19 at 21:00 Fluticasone Propionate (Flonase 0.05% Nasal) 1 spray DAILY NASAL Last administered on 01/25/19 08:27; Admin Dose 1 SPRAY; Start 01/25/19 at 09:00 Gabapentin (Neurontin) 300 mg BID PO Last administered on 01/25/19 08:27; Admin Dose 300 MG; Start 01/24/19 at 21:00 Pantoprazole (Protonix Tab) 40 mg AC BREAKFAST PO Last administered on 01/25/19at 06:38; Admin Dose 40 MG; Start 01/25/19 at 07:00 Polyethylene Glycol (Miralax) 17 gm DAILY PO Last administered on 01/25/19 08:26; Admin Dose 17 GM; Start 01/25/19 at 09:00 Fish Oil (Fish Oil) 1,000 mg DAILY PO Last administered on 01/25/19 08:27; Admin Dose 1,000 MG; Start 01/25/19 at 09:00 IV Flush (NS 3 ml) 3 ml PER PROTOCOL IV ; Start 01/24/19 at 18:00 Ondansetron HCl (Zofran Inj) 4 mg Q6H PRN IV NAUSEA/VOMITING; Start 01/24/19 at 18:00 Aspirin (Aspirin) 81 mg DAILY PO Last administered on 01/25/19 08:27; Admin Dose 81 MG; Start 01/25/19 at 09:00 Acetaminophen (Tylenol Tab) 650 mg Q6H PRN PO .PAIN 1-3 OR TEMP; Start 01/24/19 at 18:00 Docusate Sodium (Colace) 100 mg Q12H PRN PO .CONSTIPATION; Start 01/24/19 at 18:00 Magnesium Hydroxide (Milk Of Mag) 30 ml DAILY PRN PO .CONSTIPATION; Start 01/24/19 at 18:00 Insulin Aspart (Novolog Insulin Pen) NOVOLOG *MILD* ALGORITHM WITH MEALS BEDTIME SC Last administered on 01/25/19at 12:12; Admin Dose 1 UNIT; Start 01/24/19 at 18:00 Miscellaneous Information 1 ea NOTE XX ; Start 01/24/19 at 18:00 Glucose (Glutose) 15 gm Q15M PRN PO DECREASED GLUCOSE; Start 01/24/19 at 18:00 Glucose (Glutose) 22.5 gm Q15M PRN PO DECREASED GLUCOSE; Start 01/24/19 at 18:00 Dextrose (D50w Syringe) 25 ml Q15M PRN IV DECREASED GLUCOSE; Start 01/24/19 at 18:00 Dextrose (D50w Syringe) 50 ml Q15M PRN IV DECREASED GLUCOSE; Start 01/24/19 at 18:00 Glucagon (Glucagen) 1 mg Q15M PRN IM DECREASED GLUCOSE; Start 01/24/19 at 18:00 Glucose (Glutose) 15 gm Q15M PRN BUCCAL DECREASED GLUCOSE; Start 01/24/19 at 18:00 Hydralazine HCl (Apresoline) 10 mg Q4H PRN IV SBP >200 Last administered on 01/25/19at 01:37; Admin Dose 10 MG; Start 01/25/19 at 01:00 Atorvastatin Calcium (Lipitor) 40 mg QHS PO ; Start 01/25/19 at 21:00 Past Medical History reviewed Medical History: diabetes, high cholesterol, hypertension Home Meds Active Scripts Ferrous Sulfate* (Ferrous Sulfate*) 325 Mg Tabec, 325 MG PO DAILY for 30 Days, #30 TAB Prov:MARIA VICTORIA ECHAVARRIA MD 01/25/19 Aspirin (Aspirin) 81 Mg Chew, 81 MG PO DAILY for 30 Days, #30 TAB 1 Refill Prov:MARIA VICTORIA ECHAVARRIA MD 01/25/19 Atorvastatin* (Atorvastatin*) 80 Mg Tablet, 80 MG PO QHS for 30 Days, #30 TAB Prov:MARIA VICTORIA ECHAVARRIA MD 01/25/19 Reported Medications Ondansetron Hcl* (Zofran*) 4 Mg Tab, 4 MG PO Q8H PRN for NAUSEA AND OR VOMITING, TAB 01/24/19 [place]-3 Fatty Acids/Fish Oil ([place] 3 1,000 mg Softgel) 1 Each Capsule, 1 EACH PO DAILY, CAP 01/24/19 Metformin Hcl* (Metformin Hcl*) 1,000 Mg Tablet, 1000 MG PO WITH BREAKFAST DINNE, #60 TAB 01/24/19 Lisinopril* (Lisinopril*) 40 Mg Tablet, 40 MG PO DAILY, #30 TAB 01/24/19 Gabapentin* (Gabapentin*) 300 Mg Capsule, 300 MG PO BID, #60 CAP TAKE 600-QAM AND 900-QPM 01/24/19 Fluticasone Propionate* (Fluticasone Propionate* Nasal) 50 Mcg/[place] - 16 Gm [place].susp, 1 SPRAY NASAL DAILY, #1 BOTTLE TO EACH NOSTRIL 01/24/19 Diclofenac Sodium* (Voltaren* Gel) 1% -100 Gm Gel, 2 GM TOP TID, #1 TUB 01/24/19 Cyanocobalamin* (Vitamin B-12*) 1,000 Mcg Tablet.sa, 1000 MCG PO DAILY, TAB 01/24/19 Cholecalciferol* (Vitamin D3*) 1,000 Unit Tablet, 1000 UNIT PO DAILY, TAB 01/24/19 Amlodipine Besylate* (Amlodipine Besylate*) 2.5 Mg Tablet, 2.5 MG PO DAILY, #30 TAB 01/24/19 Acetaminophen* (Acetaminophen*) 500 MG Extra Strength Tablet, 1000 MG PO BID PRN for PAIN AND OR ELEVATED TEMP, TAB 01/24/19 Polyethylene Glycol* (Miralax*) 17 Gm Powd.pack, 17 GM PO DAILY, #30 PACKET 01/24/19 Pantoprazole* (Pantoprazole*) 40 Mg Tablet.dr, 40 MG PO AC BREAKFAST, TAB 01/24/19 Discontinued Reported Medications Atorvastatin Calcium* (Atorvastatin Calcium*) 20 Mg Tablet, 20 MG PO QHS, #30 TAB 01/24/19 Fish Oil* (Fish Oil*) 1,000 Mg Cap, 1000 MG PO BID, CAP 08/23/15 Lisinopril* (Lisinopril*) 5 Mg Tablet, 5 MG PO DAILY, TAB 08/23/15 Mu-Vits-Min Th/Lycopene/Lutein (CENTRUM SILVER TABLET) 1 Each Tablet, 1 EACH PO DAILY 08/23/15 Metformin Hcl* (Metformin Hcl*) 500 Mg Tablet, 500 MG PO BID WITH MEALS, TAB 08/23/15 Gabapentin* (Gabapentin*) 300 Mg Capsule, 300 MG PO TID, CAP 08/23/15 Atorvastatin Calcium* (Atorvastatin Calcium*) 20 Mg Tablet, 20 MG PO HS, TAB 08/23/15 Alendronate Sodium* (Fosamax*) 70 Mg Tablet, 70 MG PO Q7D, TAB 08/23/15 Aspirin/Calcium Carbonate/Mag (Aspirin Tri-Buffered) 325 Mg Tablet, 81 MG PO, TAB 11/26/14 Calcium Carbonate (CALCIUM) 600 Mg Tablet, 600 MG PO 11/26/14 Discontinued Scripts Acetaminophen* (Tylophen*) 500 Mg Capsule, 1 CAP PO Q6H PRN for PAIN AND OR ELEVATED TEMP, #20 CAP Prov:JESSE CAIN MD 12/03/18 Tramadol Hcl* (Ultram*) 50 Mg Tablet, 50 MG PO Q6H PRN for PAIN, #14 TAB Prov:MARCELLO ACOSTA MD 07/19/17 Amlodipine Besylate* (Amlodipine Besylate*) 2.5 Mg Tablet, 2.5 MG PO BID for 30 Days, TAB Prov:RONI GARCÍA 08/24/15 Pantoprazole* (Pantoprazole*) 40 Mg Tabec, 40 MG PO DAILY@06, #30 Prov:RONI GARCÍA 08/24/15 Aspirin (Aspirin) 81 Mg Chew, 81 MG PO DAILY for 30 Days Prov:RONI GARCÍA 08/24/15 Clonidine Hcl* (Clonidine Hcl*) 0.1 Mg Tab, 0.1 MG PO Q4H PRN for sbp>160, #30 TAB Prov:RONI GARCÍA 08/24/15 Medications Current Medications Cholecalciferol (Vitamin D) 1,000 unit DAILY PO Last administered on 01/25/19 08:27; Admin Dose 1,000 UNIT; Start 01/25/19 at 09:00 Cyanocobalamin (Vitamin B12) 1,000 mcg DAILY PO Last administered on 01/25/19 08:27; Admin Dose 1,000 MCG; Start 01/25/19 at 09:00 Diclofenac Sodium (Voltaren 1% Gel) 2 gm TID TP Last administered on 01/25/19 08:28; Admin Dose 2 GM; Start 01/24/19 at 21:00 Fluticasone Propionate (Flonase 0.05% Nasal) 1 spray DAILY NASAL Last administered on 01/25/19 08:27; Admin Dose 1 SPRAY; Start 01/25/19 at 09:00 Gabapentin (Neurontin) 300 mg BID PO Last administered on 01/25/19 08:27; Admin Dose 300 MG; Start 01/24/19 at 21:00 Pantoprazole (Protonix Tab) 40 mg AC BREAKFAST PO Last administered on 01/25/19 06:38; Admin Dose 40 MG; Start 01/25/19 at 07:00 Polyethylene Glycol (Miralax) 17 gm DAILY PO Last administered on 01/25/19 08:26; Admin Dose 17 GM; Start 01/25/19 at 09:00 Fish Oil (Fish Oil) 1,000 mg DAILY PO Last administered on 01/25/19at 08:27; Admin Dose 1,000 MG; Start 01/25/19 at 09:00 IV Flush (NS 3 ml) 3 ml PER PROTOCOL IV ; Start 01/24/19 at 18:00 Ondansetron HCl (Zofran Inj) 4 mg Q6H PRN IV NAUSEA/VOMITING; Start 01/24/19 at 18:00 Aspirin (Aspirin) 81 mg DAILY PO Last administered on 01/25/19at 08:27; Admin Dose 81 MG; Start 01/25/19 at 09:00 Acetaminophen (Tylenol Tab) 650 mg Q6H PRN PO .PAIN 1-3 OR TEMP; Start 01/24/19 at 18:00 Docusate Sodium (Colace) 100 mg Q12H PRN PO .CONSTIPATION; Start 01/24/19 at 18:00 Magnesium Hydroxide (Milk Of Mag) 30 ml DAILY PRN PO .CONSTIPATION; Start 01/24/19 at 18:00 Insulin Aspart (Novolog Insulin Pen) NOVOLOG *MILD* ALGORITHM WITH MEALS BEDTIME SC Last administered on 01/25/19at 12:12; Admin Dose 1 UNIT; Start 01/24/19 at 18:00 Miscellaneous Information 1 ea NOTE XX ; Start 01/24/19 at 18:00 Glucose (Glutose) 15 gm Q15M PRN PO DECREASED GLUCOSE; Start 01/24/19 at 18:00 Glucose (Glutose) 22.5 gm Q15M PRN PO DECREASED GLUCOSE; Start 01/24/19 at 18:00 Dextrose (D50w Syringe) 25 ml Q15M PRN IV DECREASED GLUCOSE; Start 01/24/19 at 18:00 Dextrose (D50w Syringe) 50 ml Q15M PRN IV DECREASED GLUCOSE; Start 01/24/19 at 18:00 Glucagon (Glucagen) 1 mg Q15M PRN IM DECREASED GLUCOSE; Start 01/24/19 at 18:00 Glucose (Glutose) 15 gm Q15M PRN BUCCAL DECREASED GLUCOSE; Start 01/24/19 at 18:00 Hydralazine HCl (Apresoline) 10 mg Q4H PRN IV SBP >200 Last administered on 01/25/19at 01:37; Admin Dose 10 MG; Start 01/25/19 at 01:00 Atorvastatin Calcium (Lipitor) 40 mg QHS PO ; Start 01/25/19 at 21:00 Allergies: Coded Allergies: No Known Drug Allergy (Verified Allergy, Unknown, 01/24/19) Past Surgical History reviewed Past Surgical Hx: other (cataract) Social History reviewed Alcohol Use: none Smoking Status: Never smoker Drug Use: none AIKN ZAVALA NP January 25, 2019 14:45
[2019-01-25] MEDS ORDERED: ATOR-2 PO (14:53)
[2019-01-25] MEDS ORDERED: ASPI-831 PO (14:53)
[2019-01-25] MEDS ORDERED: FER325 PO (14:54)
--- NOTE | 2019-01-25 14:57 | PDOCDIS ---
Discharge Instructions DIAGNOSIS Discharge Diagnosis 1. Acute right precentral gyrus cortical infarcts 2. Diabetes Mellitus 3. HTN 4. hypercalcemia- improving 5. Anemia, iron deficiency 6. Narrowing of the distal petrous segment of the right ICA CONDITION [id number] Patient Condition: [id number] Stable HOME CARE INSTRUCTIONS: [id number] Diet Instructions: [id number] Low Fat /Cholesterol ACTIVITY: [id number] Activity Restrictions: [id number] No Restrictions FOLLOW UP/APPOINTMENTS Follow-up Plan 1. Follow up with your primary care physician in 1-2 weeks 2. You will need to request referral to a neurologist or endovascular neurosurgeon since you were found with narrowing of intracranial vessel and stroke 3. Take aspirin and lipitor daily 4. Increase omega dose to 3000mg daily 5. You were found to have iron deficiency and would benefit from taking iron supplements daily 6. If experiencing any concerning signs or symptoms, please go to your closest emergency department MARIA VICTORIA ECHAVARRIA MD January 25, 2019 14:57
--- NOTE | 2019-01-25 17:13 | DS ---
Date/Time of Note Date/Time of Note DATE: 01/25/19 TIME: 17:10 Discharge Summary Admission/Discharge Info Admit Date/Time January 25, 2019 at 12:41 Discharge Date/Time 01/25/19 Discharge Diagnosis 1. Acute right precentral gyrus cortical infarcts 2. Diabetes Mellitus 3. HTN 4. hypercalcemia- improving 5. Anemia, iron deficiency 6. Narrowing of the distal petrous segment of the right ICA Patient Condition: Stable Consults Neurology- Dr. Vish Edgar of Present Illness 78 yo F with PMH HTN, diabetes and TIA in past presented to ED with acute onset of left upper extremity numbness that occurred at midnight last night. Patient described discomfort as tingling and heavy. The sensation persisted throughout the night and woke up with am with the same symptoms. She denies any facial numbness, right sided defects, ambulatory disfunction, swallowing issues, or LOC. Patient has a history of TIAs in the past as well with no residual defects. Patient states her symptoms have since resolved and requesting to go home but discussed given her risk factors and history of TIAs, workup would be appropriate. Patient denies any chest pain, shortness of breath, nausea, vomiting, abdominal pain, or urinary issues. Hospital Course Patient was admitted for Neurological workup and MRI/MRA revealed an acute right precentral gyrus cortical infarct with narrowing of the distal petrous segment of the right ICA. Patient was seen by PT and recommended home with home health and physical therapy services. MRA findings were discussed with neurosurgery who recommended aspirin and follow up with Neurology of endovascular neurosurgeon after discharged. Neurology requested to monitor patients blood pressure for another day but patient was not willing to stay given symptoms resolved. Discussed with family to hold all BP medications today and resume in the am. Patient denies any new issues and vitals remained stable. Patient was discharged home in stable condition with instructions to follow up with PCP and neurology after discharge. Home Meds Active Scripts Ferrous Sulfate* (Ferrous Sulfate*) 325 Mg Tabec, 325 MG PO DAILY for 30 Days, #30 TAB Prov:MARIA VICTORIA ECHAVARRIA MD 01/25/19 Aspirin (Aspirin) 81 Mg Chew, 81 MG PO DAILY for 30 Days, #30 TAB 1 Refill Prov:MARIA VICTORIA ECHAVARRAI MD 01/25/19 Atorvastatin* (Atorvastatin*) 80 Mg Tablet, 80 MG PO QHS for 30 Days, #30 TAB Prov:MARIA VICTORIA ECHAVARRIA MD 01/25/19 Reported Medications Ondansetron Hcl* (Zofran*) 4 Mg Tab, 4 MG PO Q8H PRN for NAUSEA AND OR VOMITING, TAB 01/24/19 [place]-3 Fatty Acids/Fish Oil ([place] 3 1,000 mg Softgel) 1 Each Capsule, 1 EACH PO DAILY, CAP 01/24/19 Metformin Hcl* (Metformin Hcl*) 1,000 Mg Tablet, 1000 MG PO WITH BREAKFAST DINNE, #60 TAB 01/24/19 Lisinopril* (Lisinopril*) 40 Mg Tablet, 40 MG PO DAILY, #30 TAB 01/24/19 Gabapentin* (Gabapentin*) 300 Mg Capsule, 300 MG PO BID, #60 CAP TAKE 600-QAM AND 900-QPM 01/24/19 Fluticasone Propionate* (Fluticasone Propionate* Nasal) 50 Mcg/[place] - 16 Gm [place].susp, 1 SPRAY NASAL DAILY, #1 BOTTLE TO EACH NOSTRIL 01/24/19 Diclofenac Sodium* (Voltaren* Gel) 1% -100 Gm Gel, 2 GM TOP TID, #1 TUB 01/24/19 Cyanocobalamin* (Vitamin B-12*) 1,000 Mcg Tablet.sa, 1000 MCG PO DAILY, TAB 01/24/19 Cholecalciferol* (Vitamin D3*) 1,000 Unit Tablet, 1000 UNIT PO DAILY, TAB 01/24/19 Amlodipine Besylate* (Amlodipine Besylate*) 2.5 Mg Tablet, 2.5 MG PO DAILY, #30 TAB 01/24/19 Acetaminophen* (Acetaminophen*) 500 MG Extra Strength Tablet, 1000 MG PO BID PRN for PAIN AND OR ELEVATED TEMP, TAB 01/24/19 Polyethylene Glycol* (Miralax*) 17 Gm Powd.pack, 17 GM PO DAILY, #30 PACKET 01/24/19 Pantoprazole* (Pantoprazole*) 40 Mg Tablet.dr, 40 MG PO AC BREAKFAST, TAB 01/24/19 Discontinued Reported Medications Atorvastatin Calcium* (Atorvastatin Calcium*) 20 Mg Tablet, 20 MG PO QHS, #30 TAB 01/24/19 Fish Oil* (Fish Oil*) 1,000 Mg Cap, 1000 MG PO BID, CAP 08/23/15 Lisinopril* (Lisinopril*) 5 Mg Tablet, 5 MG PO DAILY, TAB 08/23/15 Mu-Vits-Min Th/Lycopene/Lutein (CENTRUM SILVER TABLET) 1 Each Tablet, 1 EACH PO DAILY 08/23/15 Metformin Hcl* (Metformin Hcl*) 500 Mg Tablet, 500 MG PO BID WITH MEALS, TAB 08/23/15 Gabapentin* (Gabapentin*) 300 Mg Capsule, 300 MG PO TID, CAP 08/23/15 Atorvastatin Calcium* (Atorvastatin Calcium*) 20 Mg Tablet, 20 MG PO HS, TAB 08/23/15 Alendronate Sodium* (Fosamax*) 70 Mg Tablet, 70 MG PO Q7D, TAB 08/23/15 Aspirin/Calcium Carbonate/Mag (Aspirin Tri-Buffered) 325 Mg Tablet, 81 MG PO, TAB 11/26/14 Calcium Carbonate (CALCIUM) 600 Mg Tablet, 600 MG PO 11/26/14 Discontinued Scripts Acetaminophen* (Tylophen*) 500 Mg Capsule, 1 CAP PO Q6H PRN for PAIN AND OR ELEVATED TEMP, #20 CAP Prov:JESSE CAIN MD 12/03/18 Tramadol Hcl* (Ultram*) 50 Mg Tablet, 50 MG PO Q6H PRN for PAIN, #14 TAB Prov:MARCELLO ACOSTA MD 07/19/17 Amlodipine Besylate* (Amlodipine Besylate*) 2.5 Mg Tablet, 2.5 MG PO BID for 30 Days, TAB Prov:RONI GARCÍA 08/24/15 Pantoprazole* (Pantoprazole*) 40 Mg Tabec, 40 MG PO DAILY@06, #30 Prov:RONI GARCÍA 08/24/15 Aspirin (Aspirin) 81 Mg Chew, 81 MG PO DAILY for 30 Days Prov:RONI GARCÍA 08/24/15 Clonidine Hcl* (Clonidine Hcl*) 0.1 Mg Tab, 0.1 MG PO Q4H PRN for sbp>160, #30 TAB Prov:RONI GARCÍA 08/24/15 Follow-up Plan 1. Follow up with your primary care physician in 1-2 weeks 2. You will need to request referral to a neurologist or endovascular neurosur geobert since you were found with narrowing of intracranial vessel and stroke 3. Take aspirin and lipitor daily 4. Increase omega dose to 3000mg daily 5. You were found to have iron deficiency and would benefit from taking iron supplements daily 6. If experiencing any concerning signs or symptoms, please go to your closest emergency department Primary Care Provider [facility] Time spent on discharge: > 30 minutes Pending Labs Laboratory Tests Test 01/24/19 18:32 01/24/19 22:14 01/25/19 04:26 01/25/19 07:43 Bedside 117 112 162 Glucose mg/dL (70-220) mg/dL (70-220) mg/dL (70-220) White Blood 8.2 Count 10^3/ul (4.8-1 0.8) Red Blood 4.33 Count 10^6/ul (4.20- 5.40) Hemoglobin 10.3 g/dl (12.0-16. 0) Hematocrit 33.1 % (37.0-47.0) Mean 76.4 Corpuscular fl (82.0-101.0 Volume ) Mean 23.8 Corpuscular pg (29.0-33.0) Hemoglobin Mean 31.1 Corpuscular g/dl (32.0-37. Hemoglobin Conc 0) ent Red Cell 17.2 Distribution % (11.5-14.5) Width Platelet Count 279 10^3/UL (140-4 15) Mean Platelet 12.2 Volume fl (7.4-10.4) Immature 0.200 Granulocytes % % (0.001-0.429 ) Neutrophils % 61.4 % (39.0-77.0) Lymphocytes % 29.0 % (15.0-51.0) Monocytes % 8.0 % (0.0-11.0) Eosinophils % 1.0 % (0.0-7.0) Basophils % 0.4 % (0.0-2.0) Nucleated Red 0.0 Blood Cells % /100WBC (0.0-0 .0) Immature 0.020 Granulocytes # 10^3/ul (0.0-0 .031) Neutrophils # 5.0 10^3/ul (1.6-7 .5) Lymphocytes # 2.4 10^3/ul (0.8-2 .9) Monocytes # 0.7 10^3/ul (0.3-0 .9) Eosinophils # 0.1 10^3/ul (0.0-0 .5) Basophils # 0.0 10^3/ul (0.0-0 .1) Nucleated Red 0.0 Blood Cells # 10^3/ul (0.0-0 .0) Sodium Level 144 mmol/L (135-14 4) Potassium 3.2 Level mmol/L (3.5-5. 1) Chloride Level 105 mmol/L (97-110 ) Carbon Dioxide 26 Level mmol/L (21-31) Anion Gap 13 (5-13) Blood Urea 10 Nitrogen mg/dl (7-20) Creatinine 0.67 mg/dl (0.44-1. 00) Est Glomerular mL/min (>60) Filtrat Rate mL/min Glucose Level 194 mg/dl (70-220) Calcium Level 10.6 mg/dl (8.4-10. 2) Magnesium 1.1 Level mg/dl (1.7-2.5 ) Total 0.7 Bilirubin mg/dl (0.2-1.3 ) Direct 0.00 Bilirubin mg/dl (0.00-0. 20) Indirect 0.7 Bilirubin mg/dl (0-1.1) Aspartate Amino 15 Transf (AST/SGO IU/L (15-46) T) Alanine 14 Aminotransferas IU/L (13-69) e (ALT/SGPT) Alkaline 71 Phosphatase IU/L (42-121) Total Protein 7.4 g/dl (6.1-8.1) Albumin 4.0 g/dl (3.3-4.9) Globulin 3.40 g/dl (1.3-3.2) Albumin/Globuli 1.17 n Ratio Thyroid 3.010 Stimulating MIU/L (0.465-4 Hormone (TSH) .680) Test 01/25/19 12:09 Bedside 147 Glucose mg/dL (70-220) MARIA VICTORIA ECHAVARRIA MD January 25, 2019 17:13
--- NOTE | 2019-01-25 18:28 | RADRPT ---
Echocardiogram Report Patient Name: SADE SOTOPatient ID: [id number] : 1940 (78y 9m)Study Date: 01/25/2019 8:45:36 AM Gender: FAccession #: [id number] Tech: Xiao Shah [facility] Location: [facility] Ref.Physician: MARIA VICTORIA ECHAVARRIA Height(Cm): BSA: Weight(Kg): Quality: AdequateAccount #: Procedures: Echocardiographic Report: Transthoracic echocardiogram with complete 2D, M-Mode, and doppler examination. Indications: Transient Ischemic Attack. Measurements: 2D/M Mode Doppler Measurement Value Normal Range Measurement Value Normal Range LVIDd 2D 3.9 [ 3.8 - 5.2 ] cm AV Peak Bart[place] 1.4 [ 100.0 - 170.0 ] cm/sec LVIDs 2D 2.3 [ 2.2 - 3.5 ] cm AV Peak PG 8.0 [ 2.0 - 9.0 ] mmHg LVPWd 2D 1.1 [ 0.6 - 0.9 ] cm LVOT Peak Bart[place] 1.1 [ 70.0 - 110.0 ] cm/sec IVSd 2D 1.0 [ 0.6 - 0.9 ] cm LVOT Peak PG 5.0 [ 2.0 - 6.0 ] mmHg AoR Diam 2D 2.6 [ 2.3 - 3.1 ] cm MV E Peak Bartolo 0.6 [ 60.0 - 130.0 ] cm/sec EDV 2D 66.3 [ 46.0 - 106.0 ] ml MV A Peak Bart[place] 0.9 [ 100.0 - 120.0 ] cm/sec ESV 2D 18.5 [ 14.0 - 42.0 ] ml MV E/A 0.7 [ 0.8 - 1.5 ] ratio EF 2D 72.1 [ 54.0 - 74.0 ] percent MV Decel Time 236 [ 104 - 258 ] msec LA Dimen 2D 2.9 [ 2.7 - 3.8 ] cm Lat E` Bartolo 0.1 [ 10.0 - 15.0 ] cm/sec Lateral E/E` 9.2 [ 1.0 - 2.0 ] ratio MV E/A 0.7 [ 0.8 - 1.5 ] ratio TR Peak Bartolo 2.7 [ 100.0 - 280.0 ] cm/sec TR Peak PG 28.0 mmHg RVSP 31.0 [ 10.0 - 36.0 ] mmHg RA Pressure 3.0 mmHg Findings: Left Ventricle: Normal left ventricular systolic function. Normal left ventricular cavity size. Mild concentric left ventricular hypertrophy. Ejection fraction is visually estimated at 55-60 %. Tissue Doppler/Mitral Doppler indices are consistent with impaired relaxation (Stage I diastolic dysfunction). Right Ventricle: Normal right ventricular size. Normal right ventricular systolic function. Left Atrium: The left atrium is normal in size. Right Atrium: The right atrium is normal in size. Mitral Valve: Normal appearance and function of the mitral valve with trace physiologic regurgitation. Aortic Valve: No hemodynamically significant aortic stenosis by doppler. Aortic cusps appear mildly calcified. Trace to mild aortic valve regurgitation. Tricuspid Valve: Normal appearance of the tricuspid valve. Estimated peak PA systolic pressure 31 mmHg. There is mild tricuspid regurgitation. Pulmonic Valve: Pulmonic valve not well visualized. Pericardium: Normal pericardium with no significant pericardial effusion. Aorta: Normal aortic root. IVC: Normal size and normal respiratory collapse consistent with normal right atrial pressure. Conclusions: Normal left ventricular systolic function. Normal left ventricular cavity size. Mild concentric left ventricular hypertrophy. Ejection fraction is visually estimated at 55-60 %. Tissue Doppler/Mitral Doppler indices are consistent with impaired relaxation (Stage I diastolic dysfunction). Normal appearance and function of the mitral valve with trace physiologic regurgitation. No hemodynamically significant aortic stenosis by doppler. Aortic cusps appear mildly calcified. Trace to mild aortic valve regurgitation. Normal appearance of the tricuspid valve. Estimated peak PA systolic pressure 31 mmHg. There is mild tricuspid regurgitation. Electronically Signed By: Marcus Mcclellan 2019-01-25 18:27:43 PDT
[2019-01-25] MEDS ORDERED: ATORVASTATIN 40 MG TAB PO SCH (21:00)
== END 2019-01-25 18:07 | disposition home health service (06) | DRG 66 ==
LOC: E/R 14:35 → 6WM 17:22 → SUATTDRO 17:39 → OBSVTOIN 01-25 12:41
PROVIDERS: ADMIT Internal Medicine; ATTEND Internal Medicine
DX: I63.9 Cerebral infarction, unspecified (principal); E11.9 Type 2 diabetes mellitus without complications; I10 Essential (primary) hypertension; D50.9 Iron deficiency anemia, unspecified
CPT/HCPCS: 36415; 70450; 70545; 70548; 70552; 71045; 80048; 80053; 80061; 82962; 83036; 83540; 83735; 84443; 84484; 85025; 85610; 85730; 93005; 93306; 97162; 97167; G0378; J0360; J1815; J3475; J7030

== ENCOUNTER 2019-03-21 16:28 | Emergency (ER) | payer MEDICARE, OTHER ==
[~2019-03-21] VITALS: Ht 160 cm; Wt 55.0 kg
[~2019-03-21 16:28] MED LIST changes: +ACET-141 PO; -ACET500C5 PO; -ALEN70TA5 PO; -ASPI-799 PO; +ATOR-2 PO; -ATOR20TA38 PO; -CALC600T5 PO; +CHOL100062 PO; -CLON-379 PO; +CYAN100080 PO; +DICL100G37 TOP; +FER325 PO; +FLUT16SP17 NASAL; -LISI-313 PO; +LISI40TA3 PO; +METF100010 PO; -METF500T24 PO; -MULT-860 PO; -OMEG-135 PO; +OMEG1CAP90 PO; +ONDA4TAB13 PO; +POLY17PO6 PO; -TRAM50TA PO
[2019-03-21 16:32] VITALS: Ht 160 cm; Wt 55.0 kg
[2019-03-21] MEDS ORDERED: FAMOTIDINE 20 MG INJ IV STA (17:11)
[2019-03-21] MEDS ORDERED: ONDANSETRON 4 MG INJ IV STA (17:11)
[2019-03-21] MEDS ORDERED: SOD CHLORIDE 0.9% 1,000 ML IV STA ×2 (17:11→18:14)
[2019-03-21] MEDS ORDERED: BELLADONNA/PHENOBARBITAL TAB PO STA (17:11)
[2019-03-21] MEDS ORDERED: LIDOCAINE/MYLANTA 40 ML BTL PO STA (17:11)
[2019-03-21] MEDS ORDERED: GLIP2.5T14 PO (17:28)
--- NOTE | 2019-03-21 18:41 | ERD ---
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 The patient is on aspirin on a daily basis. For the past 48 hours the patient had multiple episodes of nonbloody nonbilious emesis. This was followed by a loose watery stools. She is had 3 episodes of diarrhea in the past 48 hours. She is felt persistent nausea and been unable to tolerate oral intake. She however denies any abdominal pain. She denies a headache. She has no fevers no shaking no chills. She denies any chest pain. She has no shortness of breath at rest or exertion. She has had no recent hospitalizations. She has had no sick contacts. ROS All systems reviewed and are negative except as per history of present illness. Medications Home Meds Active Scripts Ferrous Sulfate* (Ferrous Sulfate*) 325 Mg Tabec, 325 MG PO DAILY for 30 Days, #30 TAB Prov:MARIA VICTORIA ECHAVARRIA MD 01/25/19 Aspirin (Aspirin) 81 Mg Chew, 81 MG PO DAILY for 30 Days, #30 TAB 1 Refill Prov:MARIA VICTORIA ECHAVARRIA MD 01/25/19 Atorvastatin* (Atorvastatin*) 80 Mg Tablet, 80 MG PO QHS for 30 Days, #30 TAB Prov:MARIA VICTORIA ECHAVARIRA MD 01/25/19 Reported Medications Glipizide XL* (Glipizide XL*) 2.5 Mg Tab.er.24, 2.5 MG PO DAILY, TAB 03/21/19 Ondansetron Hcl* (Zofran*) 4 Mg Tab, 4 MG PO Q8H PRN for NAUSEA AND OR VOMITING, TAB 01/24/19 [place]-3 Fatty Acids/Fish Oil ([place] 3 1,000 mg Softgel) 1 Each Capsule, 1 EACH PO DAILY, CAP 01/24/19 Metformin Hcl* (Metformin Hcl*) 1,000 Mg Tablet, 1000 MG PO WITH BREAKFAST DINNE, #60 TAB 01/24/19 Lisinopril* (Lisinopril*) 40 Mg Tablet, 40 MG PO DAILY, #30 TAB 01/24/19 Gabapentin* (Gabapentin*) 300 Mg Capsule, 300 MG PO BID, #60 CAP TAKE 600-QAM AND 900-QPM 01/24/19 Fluticasone Propionate* (Fluticasone Propionate* Nasal) 50 Mcg/[place] - 16 Gm Spr ay.susp, 1 SPRAY NASAL DAILY, #1 BOTTLE TO EACH NOSTRIL 01/24/19 Diclofenac Sodium* (Voltaren* Gel) 1% -100 Gm Gel, 2 GM TOP TID, #1 TUB 01/24/19 Cyanocobalamin* (Vitamin B-12*) 1,000 Mcg Tablet.sa, 1000 MCG PO DAILY, TAB 01/24/19 Cholecalciferol* (Vitamin D3*) 1,000 Unit Tablet, 1000 UNIT PO DAILY, TAB 01/24/19 Amlodipine Besylate* (Amlodipine Besylate*) 2.5 Mg Tablet, 2.5 MG PO DAILY, #30 TAB 01/24/19 Acetaminophen* (Acetaminophen*) 500 MG Extra Strength Tablet, 1000 MG PO BID PRN for PAIN AND OR ELEVATED TEMP, TAB 01/24/19 Polyethylene Glycol* (Miralax*) 17 Gm Powd.pack, 17 GM PO DAILY, #30 PACKET 01/24/19 Pantoprazole* (Pantoprazole*) 40 Mg Tablet.dr, 40 MG PO AC BREAKFAST, TAB 01/24/19 Allergies Allergies: Coded Allergies: No Known Drug Allergy (Verified Allergy, Unknown, 03/21/19) PMhx/Soc History of Surgery: No Anesthesia Reaction: No Hx Neurological Disorder: Yes (neuropathy, STROKE 01/2019) Hx Respiratory Disorders: No Hx Cardiac Disorders: Yes Hx Psychiatric Problems: No Hx Miscellaneous Medical Probl: Yes (See technical record) Hx Alcohol Use: No Hx Substance Use: No Hx Tobacco Use: No Smoking Status: Never smoker Physical Exam Vitals Vital Signs Date Temp Pulse Resp B/P (MAP) Pulse Ox O2 O2 Flow FiO2 Time Delivery Rate 03/21/19 98.0 77 14 167/88 99 Room Air 18:31 (114) 03/21/19 98.0 80 18 165/134 99 Room Air 17:46 (144) 03/21/19 98.0 80 18 165/94 99 Room Air 17:03 (117) 03/21/19 98.0 86 18 193/93 99 16:32 (126) Physical Exam Constitutional:Well-developed. Well-nourished. HEENT:Normocephalic. Atraumatic.Pupils were equal round reactive to light. Dry mucous membranes. Respiratory: Not using accessory muscles of respiration.Lungs were clear to auscultation bilaterally. No rhonchi. No rales. No wheezing. Cardiovascular: Regular rate regular rhythm.No murmurs. No rubs were appreciated.S1, S2 normal. Distal pulses are palpable 2+ bilaterally. GI: Abdomen was soft. Nontender. Non Distended. No pulsatile abdominal masses or bruits. No rebound. No guarding. Bowel sounds were present and normal. Muscle skeletal: Full range of motion of both the upper and lower extremities bilaterally.Normal muscle tone.No assymetrical calf tenderness or swelling. Skin: No petechia, no purpura. No lesions on the palms or the soles of the feet. No maculopapular rash. NEURO: Patient was alert, awake, orientated x3.No facial droop. Gait observed and normal with no ataxia.Speech had regular rate and rhythm. No focal neurological deficits. Result Diagram: 03/21/19 1705 03/21/19 1705 Results 24 hrs Laboratory Tests Test 03/21/19 17:01 03/21/19 17:05 03/21/19 17:42 Bedside Glucose 144 mg/dL White Blood Count 8.4 10^3/ul Red Blood Count 4.57 10^6/ul Hemoglobin 11.9 g/dl Hematocrit 36.8 % Mean Corpuscular Volume 80.5 fl Mean Corpuscular Hemoglobin 26.0 pg Mean Corpuscular 32.3 g/dl Hemoglobin Concent Red Cell Distribution Width 16.7 % Platelet Count 255 10^3/UL Mean Platelet Volume 12.2 fl Immature Granulocytes % 0.200 % Neutrophils % 70.2 % Lymphocytes % 21.0 % Monocytes % 8.1 % Eosinophils % 0.4 % Basophils % 0.1 % Nucleated Red Blood Cells % 0.0 /100WBC Immature Granulocytes # 0.020 10^3/ul Neutrophils # 5.9 10^3/ul Lymphocytes # 1.8 10^3/ul Monocytes # 0.7 10^3/ul Eosinophils # 0.0 10^3/ul Basophils # 0.0 10^3/ul Nucleated Red Blood Cells # 0.0 10^3/ul Prothrombin Time 12.2 Sec Prothrombin Time Ratio 1.0 INR International 0.89 Normalized Ratio Activated Partial Thromboplast 30.0 Sec Time Sodium Level 131 mmol/L Potassium Level 3.9 mmol/L Chloride Level 93 mmol/L Carbon Dioxide Level 24 mmol/L Anion Gap 14 Blood Urea Nitrogen 10 mg/dl Creatinine 0.71 mg/dl Est Glomerular Filtrat mL/min Rate mL/min Glucose Level 146 mg/dl Calcium Level 10.5 mg/dl Total Bilirubin 1.1 mg/dl Direct Bilirubin 0.00 mg/dl Indirect Bilirubin 1.1 mg/dl Aspartate Amino 25 IU/L Transf (AST/SGOT) Alanine 13 IU/L Aminotransferase (ALT/SGPT) Alkaline Phosphatase 73 IU/L Troponin I < 0.012 ng/ml Total Protein 8.3 g/dl Albumin 4.7 g/dl Globulin 3.60 g/dl Albumin/Globulin Ratio 1.30 Amylase Level 109 U/L Lipase 316 U/L Urine Color STRAW Urine Clarity CLEAR Urine pH 7.0 Urine Specific [place] 1.003 Urine Ketones NEGATIVE mg/dL Urine Nitrite NEGATIVE mg/dL Urine Bilirubin NEGATIVE mg/dL Urine Urobilinogen NEGATIVE mg/dL Urine Leukocyte Esterase NEGATIVE [place]/ul Urine Hemoglobin NEGATIVE mg/dL Urine Glucose NEGATIVE mg/dL Urine Total Protein NEGATIVE mg/dl Current Medications Medications Dose Sig/Perez Start Time Status Last (Trade) Ordered Route PRN Stop Time Admin Dose Reason Admin Sodium 1,000 ml @ Q1H STAT 03/21/19 DC 03/21/19 Chloride 1,000 mls/hr IV 17:11 17:32 03/21/19 18:10 Ondansetron 4 mg ONCE STAT 03/21/19 DC 03/21/19 HCl (Zofran IV 17:11 17:33 Inj) 03/21/19 17:13 Famotidine 20 mg ONCE STAT 03/21/19 DC 03/21/19 (Pepcid Iv) IV 17:11 17:33 03/21/19 17:13 40 ml ONCE STAT 03/21/19 DC 03/21/19 Miscellaneous PO 17:11 17:32 Medication 03/21/19 17:13 (Gi Cocktail (2)) Belladonna/ 2 tab ONCE STAT 03/21/19 DC 03/21/19 Phenobarbital PO 17:11 17:32 () 03/21/19 17:13 Sodium 1,000 ml @ Q1H STAT 03/21/19 DC 03/21/19 Chloride 1,000 mls/hr IV 18:14 18:27 03/21/19 19:13 Procedures/[facility] This is a very pleasant 78-year-old female who presented to the emergency room with nausea vomiting and diarrhea. The patient has not been on any recent antibiotics to suggest C. difficile. She is had no sick contacts. She had no recent travel to suggest a parasitic infection. The patient was placed in a cardiac tech continuous pulse oximetry and IV access was established by nursing staff. I obtained a 12-lead EKG tracing to rule out for atypical myocardial infarction. 12 Lead EKG tracing ordered and reviewed by myself showed: Normal sinus rhythm of 79 bpm and no arrhythmia. PA interval normal. QRS duration normal. No ST segment elevation No ST segment depression. No changes consistent with acute ischemia. I did a 1 view chest radiograph there is no evidence of aspiration pneumonia and this was reviewed by myself as well as the radiologist. There is no free air underneath the diaphragm. The patient had no leukocytosis. There is no severe electrolyte abnormalities other than mild hyponatremia at 131. I did feel the patient's symptoms are likely result of a viral etiology. She received IV fluids and acid antiemetics intravenously. She was now able to tolerate oral intake. She was given Lomotil. I did feel that she was safe to be able to be discharged home. The patient was discharged home in fair condition. They were instructed to return to the emergency department at any time if there was any worsening of their c ondition. The patient stated they would follow up with their PCP in the next 24- 48 hours to initiate a suitable medication regimen under the care of their PCP as well as to allow their PCP to monitor any drug reactions. The patient was discharged home with prescriptions after they gave informed consent to the new medication. They were also fully informed by myself on the adverse effects and adverse drug interactions in order to provide adequate safeguards to prevent possible adverse reactions to medications. Departure Diagnosis: Primary Impression: Nausea, vomiting, and diarrhea Additional Impression: Hyponatremia LINDA SORIANO MD Mar 21, 2019 18:41
[2019-03-21] MEDS ORDERED: ONDA4TAB14 PO (19:24)
[2019-03-21] MEDS ORDERED: DIPHENOXYLATE/ATROPINE TAB PO ONE (19:30)
[2019-03-21 19:45] VITALS: BP 141/84; PULSE 83; RESP 14
== END 2019-03-21 20:08 | disposition home or self-care (01) ==
LOC: E/R 16:28
DX: E87.0 Hyperosmolality and hypernatremia (principal); R11.2 Nausea with vomiting, unspecified; R19.7 Diarrhea, unspecified; R10.9 Unspecified abdominal pain
CPT/HCPCS: 71045; 80053; 81003; 82150; 82962; 83690; 84484; 85025; 85610; 85730; 87086; 93005; 96374; 96375; 99285; J2405; J7030